=== PATIENT | female | born 1965 | race Caucasian/White ===

== ENCOUNTER 2017-04-18 17:40 | Inpatient (IN) | payer BC ==
--- NOTE | 2017-04-18 19:49 | ED ---
Psych HPI - General Chief Complaint: Psychiatric Symptoms Stated Complaint: mental health Time Seen by Provider: 04/18/17 17:58 Source: patient, police Mode of arrival: ambulatory - History of Present Illness Initial Comments: This 51-year-old white female presents for psychiatric evaluation. She apparently made some threats on Facebook regarding going to the top of the [facility] with an AK-47 with other details that are not definitively deciphered. She states that she wanted to have sex with bulldog, apparently some Paz on the top of the [facility]. She denies any suicidal or homicidal ideations. Per records, she does have a history of some schizoaffective disorder and bipolar disorder. She previously was on 5 different psychiatric medications. She states that these medications almost killed her so she stopped these medications. She states that she has no current medical or psychiatric complaints. She denies any hallucinations or delusions. No other complaints or modifying factors. - Related Data Previous Rx's Medication Instructions Recorded Divalproex ER [Depakote ER] 1,250 mg PO HS #7 dose 09/27/15 Escitalopram [Lexapro] 10 mg PO DAILY #7 tab 09/27/15 HYDROcodone/APAP 5-325MG [[place] 1 each PO DAILY PRN #7 tab 09/27/15 5-325] Coffeen Carbonate 600 mg PO BID #14 dose 09/27/15 Prazosin [Minipress] 1 mg PO BID #14 cap 09/27/15 cloZAPine [Clozaril] 37.5 mg PO HS #7 dose 09/27/15 Allergies Allergy/AdvReac Type Severity Reaction Status Date / Time ibuprofen [From Motrin] Allergy Hallucinati Verified 04/18/17 17:49 ons Review of Systems ROS Statement: Those systems with pertinent positive or pertinent negative responses have been documented in the HPI. ROS Other: All systems not noted in ROS Statement are negative. Past Medical History Past Medical History: No Reported History History of Any Multi-Drug Resistant Organisms: None Reported Past Surgical History: Section, Orthopedic Surgery Past Psychological History: Bipolar Smoking Status: Current every day smoker Past Alcohol Use History: Occasional Past Drug Use History: None Reported - Past Family History Father Family Medical History: Cancer Additional Family Medical History / Comment(s): Father in his 70s from colon cancer. Mother Family Medical History: Coronary Artery Disease (CAD) Additional Family Medical History / Comment(s): Mother in her 70s from heart disease. Brother(s) Additional Family Medical History / Comment(s): Patient states that she has 11 siblings was does not know any medical history. She has 3 children that are healthy although one has Miri syndrome. General Exam - General Exam Comments Initial Comments: GENERAL: The patient is well nourished and well hydrated. VITAL SIGNS: Heart rate, blood pressure, respiratory rate reviewed as recorded in nurse's notes. EYES: Pupils are round and reactive. Extraocular movements are intact. No conjunctival / lid redness or swelling. ENT: No external evidence of injury, swelling, or ecchymosis. Airway is patent. Throat is clear. NECK: Nontender. No swelling or evidence of injury. No subcutaneous emphysema. Trachea is midline. No thyroid mass. HEART: Regular rate and rhythm. Good peripheral pulses. LUNGS/CHEST: Breath sounds clear and equal bilaterally. No rales, rhonchi, or wheezes. No ecchymosis, subcutaneous emphysema, or tenderness. ABDOMEN: Abdomen soft without tenderness. No palpable masses or organomegaly. No peritoneal signs. No abdominal wall swelling or ecchymosis. EXTREMITIES: No extremity tenderness. Normal muscle tone and function. No thoracolumbar tenderness. NEUROLOGIC: Sensation is grossly intact. Cranial nerve exam reveals face is symmetrical, tongue is midline, speech is clear. SKIN: No abrasions or ecchymosis is noted. No induration or masses noted. PSYCHIATRIC: Alert and oriented. She appears somewhat manic currently. Limitations: no limitations Course Vital Signs 04/18/17 04/18/17 17:43 19:55 Temperature 99.2 F Pulse Rate 135 H 100 Respiratory 20 20 Rate Blood Pressure 140/79 134/84 O2 Sat by Pulse 97 97 Oximetry Medical Decision Making - Medical Decision Making The patient is seen and examined. All diagnostics are reviewed. She is cleared for further psychiatric evaluation. The psychiatric team did eventually evaluate the patient and would like to admit her for further treatment. It is felt as those is certainly is reasonable. She does not seem to understand the need to take her medication. It is felt as though she is likely in a manic episode currently. She is medically cleared for further psychiatric treatment. - Lab Data Lab Results 04/18/17 Range/Units 18:26 Urine Opiates Screen Not Detected (NotDetected) Ur Oxycodone Screen Not Detected (NotDetected) Urine Methadone Screen Not Detected (NotDetected) Ur Propoxyphene Screen Not Detected (NotDetected) Ur Barbiturates Screen Not Detected (NotDetected) U Tricyclic Antidepress Not Detected (NotDetected) Ur Phencyclidine Scrn Not Detected (NotDetected) Ur Amphetamines Screen Not Detected (NotDetected) U Methamphetamines Scrn Not Detected (NotDetected) U Benzodiazepines Scrn Not Detected (NotDetected) Urine Cocaine Screen Not Detected (NotDetected) U Marijuana (THC) Screen Not Detected (NotDetected) Disposition Clinical Impression: Psychosis, Bipolar disorder, Manda Disposition: ADMITTED IP TO THIS [facility] Condition: Fair Referrals: Carlton Bain III, MD [Primary Care Provider] - 1-2 days Time of Disposition: 20:29 Decision Date: 04/18/17 Decision Time: 20:29
[2017-04-18] MEDS ORDERED: LORazepam 2 MG/ML SYRINGE IM STA (20:28)
[2017-04-18] MEDS ORDERED: LORazepam 1 MG TAB PO STA (20:38)
[2017-04-18] MEDS ORDERED: ZIPRASIDONE 20 MG VIAL IM PRN (22:09)
[2017-04-18] MEDS ORDERED: MAGNESIUM HYDROXIDE 2,400 MG/10 ML CUP PO PRN (22:09)
[2017-04-18] MEDS ORDERED: LORazepam 2 MG/ML SYRINGE IM PRN (22:14)
[2017-04-18] MEDS ORDERED: OLANZapine ODT 5 MG TAB PO PRN (22:16)
[2017-04-19] MEDS: ACETAMINOPHEN TAB 325 MG TAB PO PRN (06:13)
[2017-04-19] MEDS ORDERED: LEVOTHYROXINE 75 MCG TAB PO SCH (06:30)
[2017-04-19] MEDS: NICOTINE 14MG/24HR PATCH TRANSDERM SCH (09:14)
[2017-04-19 09:31] LABS: Basophils % (A) 0 %; CH 28.5; CHCM 34.2; Eosinophils # (A) 0.1 k/uL (0-0.7); Eosinophils % (A) 2 %; HCT 40.1 % (34.0-46.0); HDW 2.75; HGB 14.2 gm/dL (11.4-16.0); Luc # (Auto) 0.06; Luc % (Auto) 1; Lymphocytes # (A) 1.5 k/uL (1.0-4.8); Lymphocytes % (A) 21 %; MCH 29.8 pg (25.0-35.0); MCHC 35.6 g/dL (31.0-37.0); MCV 83.7 fL (80.0-100.0); Mean Platelet Volume 8.1; Monocytes # (A) 0.3 k/uL (0-1.0); Monocytes % (A) 4 %; Neutrophils # (A) 4.9 k/uL (1.3-7.7); Neutrophils % (A) 72 %; RBC 4.79 m/uL (3.80-5.40); RDW 12.8 % (11.5-15.5); WBC 6.8 k/uL (3.8-10.6); WBC (Perox) 6.23
[2017-04-19 09:50] LABS: Appearance,Urine Clear (Clear); Bilirubin,Urine Negative (Negative); Glucose,Urine (UA) Negative (Negative); Ketones,Urine Negative (Negative); Leukocyte Esterase,Urine Negative (Negative); Nitrite,Urine Negative (Negative); Protein,Urine Negative (Negative); UA Billing (MACRO vs. MICRO) CHEM; Urobilinogen,Urine <2.0 mg/dL (<2.0)
[2017-04-19 10:01] LABS: ALT 31 U/L (9-52); AST 22 U/L (14-36); Alkaline Phosphatase 62 U/L (38-126); Anion Gap 9 mmol/L; Blood Urea Nitrogen 12 mg/dL (7-17); Calcium 9.7 mg/dL (8.4-10.2); Carbon Dioxide 28 mmol/L (22-30); Chloride 107 mmol/L (98-107); Glucose 127 mg/dL (74-99); Non-African American GFR(MDRD) >60 (>60 ml/min/1.73 sqM); Potassium 4.7 mmol/L (3.5-5.1); Sodium 144 mmol/L (137-145); Total Bilirubin 0.5 mg/dL (0.2-1.3); Total Protein 6.7 g/dL (6.3-8.2)
[2017-04-19 10:10] LABS: Specific Gravity,Urine 1.001 (1.001-1.035)
[2017-04-19] MEDS ORDERED: ARIPiprazole 2 MG TAB PO SCH (11:00)
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
[2017-04-20] MEDS: LEVOTHYROXINE 125 MCG TAB PO SCH (06:08)
[2017-04-20] MEDS: NICOTINE 14MG/24HR PATCH TRANSDERM SCH (09:04)
[2017-04-20] MEDS: ARIPiprazole 10 MG TAB PO SCH (09:05)
[2017-04-20] MEDS: OXYBUTYNIN XL 5 MG TAB.ER.24 PO SCH (11:46)
--- NOTE | 2017-04-20 13:05 | P.PN ---
Progress Note - Text Interval History: Patient is a 51-year-old female who is admitted on a petition due to having been posted on Facebook that [facility]" as well as posting that she was going to take the "Folkers out". At home the police found the patient with an AK 47 rifle she stated that she was going to try to shoot warning shot. Patient was admitted on a petition was maintained on an involuntary status. Patient was seen this morning and she was initially pleasant however when questioned how she was doing patient became irritable and agitated and responded to most questions "I have a speed reading teacher they said to not take medication it is an invasion of my privacy" and continued to respond to most questions by stating she was not going to answer due to it being an invasion of her privacy. Patient was not able to be redirected to discuss how she was feeling stating that the "sheriff detective's department told me to take the fifth". Patient refused to answer any further questions. Mental Status: Appearance/Attitude: Patient was dressed in clothing from the unit, she had on jeans that are too large for her a T-shirt and stated she was wearing a bow tie. Patient initially when I approached her was pleasant, smiling however during the interview she became increasingly irritable and for the last 10 minutes of the interview refused to sit and stood in the interview room. Behavior: Patient is easily irritated and became increasingly agitated. Speech/Language: Patient's speech was slightly pressured, with increasing volume , she was coherent. Thought Process: Patient continued to respond to most questions stating that they were an invasion of her privacy, she gave further samples of this "genome testing" and stated that any "medications, prescriptions and doctors were all invasions of her privacy". Patient was not redirectable. Thought Content: Patient denied any auditory or visual hallucinations and when questioned about the reasons for her admission stated that she was not trying to hurt anyone and when questioned about the decker, Jong Bull, stated "I'm allowed to have sex with anyone I want". She again refuses to elaborate further stating that it was an invasion of her privacy. Suicidal/Homicidal Ideation: Patient states she is not suicidal or homicidal. Sensorium/Cognition: Patient is alert and oriented to person, place, and time and her memory is grossly intact. Mood/Affect: Patient's mood was irritable and easily agitated during the interview with evidence of lability based on her being quite pleasant and talkative when I initially approach her and upon further questioning becoming more irritable and refusing to respond to questions. Insight/Judgement: Patient's insight and judgment are poor. Assessment: Patient remains irritable, refusing to respond to questions stating that it is all an invasion of her privacy. She continues to have delusions regarding the decker, Pit Bull and refuses to discuss the postings that she made on Facebook. Patient is refusing to attend groups stating that "I've done all these groups before", she did however state that she was sleeping and eating well. She continues to not understand the need for medication and denies all symptomatology and continues to feel that during her last admission here the medications almost killed her. Patient did however take her Abilify yesterday and did not require any when necessary medication. She did not report any side effects from the medication. Plan: Patient continues to require hospitalization, due to her postings on facebook, continued delusions regarding Pit Bull, I discussed with the patient increasing her Abilify to 10 mg daily to target her mood and psychotic symptoms. Patient was also restarted on Ditropan XL, patient had currently been taking Detrol LA 4mg a day this was confirmed at her pharmacy and so was started on the equivalent, Ditropan XL 5 mg every morning for urinary incontinence. Her Synthroid dose was decreased yesterday due to her low TSH. She was encouraged to attend groups and activities, and she continues to refuse to sign a release to speak with her family.
[2017-04-21] MEDS: LEVOTHYROXINE 125 MCG TAB PO SCH (05:30)
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
[2017-04-21] MEDS: NICOTINE 14MG/24HR PATCH TRANSDERM SCH (09:05)
[2017-04-21] MEDS: ARIPiprazole 10 MG TAB PO SCH (09:05)
[2017-04-21] MEDS: OXYBUTYNIN XL 5 MG TAB.ER.24 PO SCH (09:05)
[2017-04-22] MEDS: LEVOTHYROXINE 125 MCG TAB PO SCH (06:24)
[2017-04-22] MEDS: ARIPiprazole 10 MG TAB PO SCH (08:51)
[2017-04-22] MEDS: NICOTINE 14MG/24HR PATCH TRANSDERM SCH (08:51)
[2017-04-22] MEDS: OXYBUTYNIN XL 5 MG TAB.ER.24 PO SCH (08:51)
--- NOTE | 2017-04-22 13:18 | P.PN ---
Progress Note - Text Interval history: Patient is seen in cross coverage today for Dr. Whitfield. She reports that she is eating well. She states that it's hard to sleep and people come to check on every 15 minutes but she did seem to sleep some last night. She does seem to be taking the Abilify. She makes reference to being here under false port. Mental status exam: She is alert and cooperative with the interview, she stands during the interview. She is seen with female nursing staff present. Her mood she describes is good. She denies any thoughts of harm to self or others. She relays thoughts that she is here under false report. She does not show any significant agitation. At the end of the session she takes a off the window a sign that says physician use only. Plan: We'll maintain current psychotropic medication. We will monitor for medication side effects. Dr. Whitfield to resume care this patient starting tomorrow.
[2017-04-23] MEDS: LEVOTHYROXINE 125 MCG TAB PO SCH (05:47)
[2017-04-23] MEDS: NICOTINE 14MG/24HR PATCH TRANSDERM SCH (09:05)
[2017-04-23] MEDS: OXYBUTYNIN XL 5 MG TAB.ER.24 PO SCH (09:06)
[2017-04-23] MEDS: ARIPiprazole 15 MG TAB PO SCH (09:31)
[2017-04-23] MEDS: ARIPiprazole 10 MG TAB PO SCH (09:34)
--- NOTE | 2017-04-23 13:08 | P.PN ---
Progress Note - Text Interval History: Patient is a 51-year-old female who was admitted on a petition due to making threats on Facebook and being found with an AK-47 at her home. Recent seen today and she continues to deny that she was making any threats on Facebook and states that the AK-47 was unloaded and in her bedroom and that she was not outside. Patient has been taking her medication and she reports no side effects from the medication and did state that she thinks her thoughts are clear. She was less irritable today and her speech was less pressured and she was not responding to most questions with "dad's privacy invasion". She reports that she did not sleep well last night but otherwise has been sleeping well and her appetite has been good. She reports that she has no current suicidal ideation and no homicidal ideation currently and states she was not making threats to hurt anyone prior to her admission. She reports that she wants to go home to take care of her son who is disabled with Miri's syndrome and states that her visited her on Sunday. She continues to refuse to sign a release of information to speak with him however. She states that she is attending groups. Mental Status: Appearance/Attitude: Patient is dressed neatly in her attitude was more cooperative today, she did not respond to every question with the statement that it an invasion of her privacy. Behavior: Patient exhibited no psychomotor agitation or retardation. Speech/Language: Patient's speech was less pressured, at times it became more pressured when discussing the reasons for her admission, and she was coherent Thought Process: Patient was goal-directed and was not tangential or circumstantial and was responding to questions. Thought Content: Patient denies any auditory or visual hallucinations and states that she continues to have feelings for Pit Bull but would not elaborate. Patient denies that she was trying to hurt people or make threats prior to her admission and states that she only wanted to "have sex on the top of the [facility]". Suicidal/Homicidal Ideation: She denies any current suicidal ideation or homicidal ideation, stating that she was not making threats prior to her admission. Sensorium/Cognition: It is alert and oriented to person, place, and time. Her memory is grossly intact. Mood/Affect: Patient's mood is less labile and she denies feeling depressed and she is less irritable today, her affect is more appropriate. Insight/Judgement: Patient's insight and judgment remain fair, patient is taking her medicine but then verbalizes that she does not need it. Assessment: Patient has been taking her medication and has been attending groups per patient, she is less irritable and responding to questions at times at other times continues to report that it's an invasion of her privacy. Patient does state that her thoughts are clear but she continues to have delusions regarding her relationship with the deckerJong Bull. Patient reports she is not having any urinary incontinence, denies any side effects from any of the medications and continues to request discharge to take care of her handicapped son. In treatment meeting it was reported that she had yelled at another peer, no other problems and no prn medication. Plan: Will increase patient's Abilify to 15 mg every morning to continue to target her mood, psychotic symptoms. Continue to encourage the patient to attend groups and activities and participate in them. She continues to require hospitalization to stabilize her mood decrease her psychotic symptomatology and evaluate her risk for threatening behavior. Patient will continue to be encouraged to sign a release of information to speak with her and to have a family meeting.
[2017-04-24] MEDS: LEVOTHYROXINE 125 MCG TAB PO SCH (06:28)
[2017-04-24] MEDS: NICOTINE 14MG/24HR PATCH TRANSDERM SCH (08:36)
[2017-04-24] MEDS: ARIPiprazole 15 MG TAB PO SCH (08:36)
[2017-04-24] MEDS: OXYBUTYNIN XL 5 MG TAB.ER.24 PO SCH (08:36)
[2017-04-24] MEDS: MAG HYDROX/AL HYDROX/SIMETH 30 ML CUP PO PRN (09:17)
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
[2017-04-25] MEDS: LEVOTHYROXINE 125 MCG TAB PO SCH (06:05)
[2017-04-25] MEDS: NICOTINE 14MG/24HR PATCH TRANSDERM SCH (08:35)
[2017-04-25] MEDS: OXYBUTYNIN XL 5 MG TAB.ER.24 PO SCH (08:35)
[2017-04-25] MEDS: ARIPiprazole 15 MG TAB PO SCH (08:35)
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
[2017-04-26] MEDS: LEVOTHYROXINE 125 MCG TAB PO SCH (03:56)
[2017-04-26] MEDS: NICOTINE 14MG/24HR PATCH TRANSDERM SCH (09:26)
[2017-04-26] MEDS: OXYBUTYNIN XL 5 MG TAB.ER.24 PO SCH (09:26)
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
[2017-04-26] MEDS: LORazepam 1 MG TAB PO PRN (20:34)
[2017-04-27] MEDS: LEVOTHYROXINE 125 MCG TAB PO SCH (05:50)
[2017-04-27] MEDS: NICOTINE 14MG/24HR PATCH TRANSDERM SCH (08:30)
[2017-04-27] MEDS: OXYBUTYNIN XL 5 MG TAB.ER.24 PO SCH (08:30)
--- NOTE | 2017-04-27 12:32 | P.PN ---
Progress Note - Text Interval History: She is a 51-year-old female who is admitted due to posting threats on Facebook as well as being found at home by police with an AK-47. I spoke with patient this morning and she reported that she now has a guardian and is aware that her requested this as he is going to seek a divorce area she stated that he did this so that she would continue to receive medical care. Patient stated that she took Ativan last evening because she wanted to rest and reports that she continues to feel groggy this morning and more irritable from it. When I discussed with the patient her thoughts about the divorce she stated that her wants a divorce because on the guardianship papers it said that she was going to "lay him out". She reported saying this and states she told him this so that she could return him to his rightful place [facility]. Patient states that she has private mormonism books that were given to her by her father and she will not discuss this with me. 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 She again reported to me that she has signed a contracts with the [place] [employer] and [facility] to work with them, she states they have taken $50,000 of her money. She states that she has been attending groups but not this morning due to feeling sleepy, she refuses to sign a release for us to speak with her , stating "he does not want to speak to us". Patient continues to deny that she has ever engaged in threatening behavior, stating the PPO order can be obtained by anyone as " judges will sign anything their clerks give them". She did repeat that she was "taking the fifth" when we were discussing her and her statement about "laying him out". Patient states that she is ready to return home, that her said she is welcomed there. She stated that maybe the Abilify was helping her. Mental Status: [Appearance/Attitude: [Patient was in her bed when approached it was easily awakened, she was neatly and appropriately dressed and her attitude was initially pleasant with some increased irritability at the end of the interview.] Behavior: Patient had no evidence of any psychomotor agitation or retardation. Speech/Language: Speech is spontaneous in her and of normal volume and rhythm. Thought Process: Patient is goal-directed and at times tangential. Thought Content: Patient denies any auditory or visual hallucinations, patient continues to discuss her relationship with a decker, Pit Bull and continues to have mormonism preoccupation discussing "privacy mormonism books" that were given to her by her father. 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 Patient continues to verbalize that she has contracts with Police Department's to assist with their drug traffic programs. She continues to deny that she has ever made any threats to someone but did verbalize that her had stated on the guardianship papers that she had told him she was going to "lay him out" . She states this meant that she was going to return him to his rightful place , [facility]. Suicidal/Homicidal Ideation: Patient denies any current suicidal ideation or homicidal ideation, continuing to deny that she is ever threatened anyone even when discussing the PPO that was obtained by her 's employer on the patient. Sensorium/Cognition: He is alert, oriented to person, place, and time and her memory is grossly intact. Mood/Affect: Patient's mood is slightly more irritable today, affect was appropriate. Insight/Judgement: Patient's judgment and insight are impaired. Assessment: Patient continues to deny that she has ever threatened anyone, remains preoccupied with her relationship with the decker, Pit Bull, and remains religiously preoccupied. She has been taking her Abilify and reports that maybe it has been of some benefit but states that she does not need medication. She has been attending groups. Patient is aware that her requested guardianship, as well she is aware that he is seeking a divorce and her response was that he was trying to make sure she had care after they were . Plan: Patient is currently on Abilify 20 mg every morning which was increased on April 26, she remains delusional and guarded and continues to deny ever making any threats to anyone or engaging in threatening behavior. She has been compliant with the medication but continues to state she does not need it. Patient continues to require hospitalization due to her delusional ideation, prior threatening behavior and lack of insight into this as well as a lack of insight into the need for medication. Will continue to observe patient on current dose of Abilify and continue to adjust as required.
[2017-04-28] MEDS: LEVOTHYROXINE 125 MCG TAB PO SCH (06:10)
[2017-04-28] MEDS: NICOTINE 14MG/24HR PATCH TRANSDERM SCH (08:23)
[2017-04-28] MEDS: OXYBUTYNIN XL 5 MG TAB.ER.24 PO SCH (08:23)
--- NOTE | 2017-04-28 09:14 | P.PN ---
Progress Note - Text Interval history: The patient is found in the hallway she follows me to an interview room. The patient has been seen in coverage today. The patient was admitted with symptoms of fortunato with psychosis. The patient spontaneously reports several types of delusions during our brief session. She is currently prescribed Abilify 20 mg daily which has been titrated during the course of this stay. She states that she has previously been on lithium which she will never take again. It's documented that she slept 6 hours she reports she slept all night she endorses an intact appetite. Previous notes are reviewed. Mental status exam: The patient is alert for the first half of our session she stands at the side of the table. Later she eventually sits down. She does have spontaneous pressured speech. I do need to interrupt her to guide the course of the interview. She spontaneously expresses grandiose delusions, paranoid and persecutory thoughts. In terms of thought process she demonstrated circumstantial thinking tangential thinking and loose associations. Her insight and judgment are poor. She lacks insight into the reasons for the admission and the necessity of ongoing hospitalization. She demonstrates no verbal or physical aggressiveness. Plan: The patient will continue on her current medications the Abilify appears to have been titrated on the . We will consider titrating this medication further. I would consider adding a conventional mood stabilizer to the Abilify if possible. We will continue to monitor the patient for safety and encourage her appropriate participation in the milieu. Vital signs reviewed.
[2017-04-29] MEDS: LEVOTHYROXINE 125 MCG TAB PO SCH (05:30)
[2017-04-29] MEDS: OXYBUTYNIN XL 5 MG TAB.ER.24 PO SCH (08:12)
[2017-04-29] MEDS: NICOTINE 14MG/24HR PATCH TRANSDERM SCH (08:12)
--- NOTE | 2017-04-29 09:19 | P.PN ---
Progress Note - Text Interval history: The patient is found in the hallway she follows me to an interview room. She starts off by asking about lab results pertaining to her thyroid. Those were reviewed. We reviewed that the internal medicine physician decreased the Synthroid as the result of the low TSH and elevated T4. She then began spontaneously speaking of several delusional themes. Most notably she is focused on her and starting a string of activities subsequent to the divorce. We reviewed several options in terms of mood stabilizers that may be added to the Abilify but she is not open to any of those suggestions. It appears she slept approximate 4 hours last night. Mental status exam: The patient is alert she is verbose hyperverbal. She has spontaneous speech. Thought process is tangential and sometimes will demonstrate loose associations. Her thought process consistently is not well organized. She seems to demonstrate grandiose and persecutory type delusions. Insight and judgment are poor. She demonstrates no verbal or physical aggressiveness. She calmly terminates the session as she gets out of her chair and walk sell her room while still talking. No observed evidence of been involuntary movements. Plan: The patient will continue on the Abilify 20 mg daily. This will likely require further titration. If she is amenable consider adding another mood stabilizer to the Abilify. We will continue monitoring the patient for safety she is encouraged to appropriately participate in the milieu. Vital signs reviewed.
[2017-04-30] MEDS: ACETAMINOPHEN TAB 325 MG TAB PO PRN (06:03)
[2017-04-30] MEDS: LEVOTHYROXINE 125 MCG TAB PO SCH (06:03)
[2017-04-30] MEDS: OXYBUTYNIN XL 5 MG TAB.ER.24 PO SCH (08:28)
[2017-04-30] MEDS: NICOTINE 14MG/24HR PATCH TRANSDERM SCH (08:30)
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
[2017-04-30] MEDS: MAG HYDROX/AL HYDROX/SIMETH 30 ML CUP PO PRN (19:20)
[2017-05-01] MEDS: MAG HYDROX/AL HYDROX/SIMETH 30 ML CUP PO PRN (01:42)
[2017-05-01] MEDS: LEVOTHYROXINE 125 MCG TAB PO SCH (06:50)
[2017-05-01] MEDS ORDERED: LOPERAMIDE 2 MG CAP PO ONE (06:57)
[2017-05-01] MEDS: ARIPiprazole 15 MG TAB PO SCH (08:26)
[2017-05-01] MEDS: NICOTINE 14MG/24HR PATCH TRANSDERM SCH (08:26)
[2017-05-01] MEDS: OXYBUTYNIN XL 5 MG TAB.ER.24 PO SCH (08:26)
[2017-05-01] MEDS: LORazepam 1 MG TAB PO PRN (10:36)
[2017-05-01] MEDS: OXcarbazepine 150 MG TAB PO SCH ×2 (11:11→22:01)
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
[2017-05-02] MEDS: ACETAMINOPHEN TAB 325 MG TAB PO PRN (03:11)
[2017-05-02] MEDS: LEVOTHYROXINE 125 MCG TAB PO SCH (05:59)
[2017-05-02] MEDS: OXcarbazepine 150 MG TAB PO SCH (08:25)
[2017-05-02] MEDS: OXYBUTYNIN XL 5 MG TAB.ER.24 PO SCH (08:25)
[2017-05-02] MEDS: NICOTINE 14MG/24HR PATCH TRANSDERM SCH (08:25)
[2017-05-02] MEDS: ARIPiprazole 15 MG TAB PO SCH (08:25)
[2017-05-02 10:00] VITALS: BMI 25.8
[2017-05-02] MEDS: MAG HYDROX/AL HYDROX/SIMETH 30 ML CUP PO PRN (10:39)
[2017-05-02] MEDS ORDERED: ARIPiprazole 400 MG VIAL IM ONE (13:15)
--- NOTE | 2017-05-02 13:37 | P.PN ---
Progress Note - Text Interval History: Patient is a 51y/o female who was admitted due to posting threats on Facebook and being found at home with an AK 47, patient was seen today and she states she now trusts me, she had spoken with me yesterday to say that some of her ideas do not seem correct, referring to her ideas about the decker, Jong Stephens. Today she states that the idea that she was spiritually to him is not realistic and does not make sense. She stated that the medication has been helpful and she has no complaints of side effects. She stated she was sad about her divorce, will hire an patent attorney and questioned why she required a guardian. She appropriately discussed her concerns about this and made no threatening or derogatory statements about her . She slept during the day yesterday due to taking ativan but has been sleeping well. She finds the groups helpful and has been participating. She reports her mood is upbeat, not feeling depressed or angry. Mental Status: Appearance/Attitude: Patient was neatly dressed and groomed, she made good eye contact and was cooperative. Behavior: Patient did not exhibit any psychomotor retardation or agitation. Speech/Language: Her speech was spontaneous, normal volume and rhythm. Thought Process: Patient was goal directed, no loose associations, no tangential or circumstantial thought. Thought Content: Patient denied any auditory or visual hallucinations, no delusions were elicited or voiced by the patient, she discussed her divorce appropriately without derogatory or threatening statements about her . She questioned the reality of her "spiritual marriage" to Jong Stephens. She discussed her angry behavior in the past and stated she has learned new coping skills. Suicidal/Homicidal Ideation: She denied any suicidal or homicidal ideation currently and no threatening statements were made. Sensorium/Cognition: Patient is alert, oriented to person, place, and time and her memory was grossly intact. Intellectual Functioning: Intellectual functioning appears normal Mood/Affect: Patient stated she was feeling good, her mood was stable and her affect was appropriate Insight/Judgement: Patient's insight and judgement are fair, she is agreeable to taking medication and feels it has been beneficial. Assessment: Patient has shown improvement by questioning some of her prior delusional ideation as not making sense. She reports that she is seeing the benefits of the medication and agrees that it has been helpful to her. She is not been verbalizing any threatening or derogatory statements regarding her and has been discussing her divorce in an appropriate fashion. Patient questioned her need for a guardian and will follow-up with this as an outpatient. Patient has been attending groups and participating and reports that they've been helpful. Plan: Patient and I discussed her medications and I suggested that she consider Abilify Maintena so that she would only have to get an injection once a month and not take Abilify daily and she was agreeable with this plan and so will begin Abilify maintena 400 mg IM today and will continue oral Abilify 30mg for 14 days following her injection. Patient has tolerated the Trileptal and her dose will be increased to 300 mg twice a day and she was agreeable with this as well. Patient and I discussed discharge this Sunday she was agreeable to this as well as agreeable to follow-up in an outpatient clinic after discharge. Patient stated that she will hire an patent attorney to deal with her divorce as well as her concerns regarding guardianship.
[2017-05-02] MEDS: OXcarbazepine 300 MG TAB PO SCH (20:39)
[2017-05-02] MEDS: LORazepam 1 MG TAB PO PRN (21:53)
[2017-05-03] MEDS: LEVOTHYROXINE 125 MCG TAB PO SCH (05:34)
[2017-05-03] MEDS: OXYBUTYNIN XL 5 MG TAB.ER.24 PO SCH (09:11)
[2017-05-03] MEDS: ARIPiprazole 15 MG TAB PO SCH (09:11)
[2017-05-03] MEDS: OXcarbazepine 300 MG TAB PO SCH ×2 (09:11→20:56)
[2017-05-03] MEDS: NICOTINE 14MG/24HR PATCH TRANSDERM SCH (09:11)
[2017-05-03] MEDS: LORazepam 1 MG TAB PO PRN ×2 (10:42→20:57)
--- NOTE | 2017-05-03 14:56 | P.PN ---
Progress Note - Text Interval History: Patient is a 51-year-old female who was admitted after posting threats on Facebook and being found by the police at home with an AK- 47. Patient was seen today and reported that her had left off a letter for me and I discussed this with the patient. I discussed with the patient the fact that she been calling her on multiple occasions, and told him that he told her [employer] would be her guardian. We also discussed that she was on at PPO order requiring her to not use social media and this was made by an employee at her 's company. Patient stated that she had been calling her repeatedly, is upset about having a guardian becomes very tearful when discussing her divorce. She was able to report that her thoughts about [employer] were due to hearts and clasped hands appearing on her Facebook posts to him, she took these to mean that he wanted to have a relationship with her. She was able to verbalize to me today that this was not realistic she no longer feels that she is spiritually to him. Patient states that she is feeling much better on the medication and is aware that some of her statements were not based on reality, patient has been taking the medication and reports no side effects from it. She does feel that her mood is more stable and that her thinking is clear. Patient did not verbalize any threatening statements nor make any homicidal threats. Mental Status: Appearance/Attitude: Patient was neatly dressed and groomed and was cooperative during the interview. Behavior: Patient displayed no psychomotor agitation or retardation. Speech/Language: Speech was spontaneous and of normal volume and rhythm and she was coherent. Thought Process: She was goal-directed and there was no evidence of any circumstantial or tangential thought, no loose associations or flight of ideas. Thought Content: Patient denied any auditory or visual hallucinations and was able to verbalize that her prior thoughts regarding Pit Bull were not realistic. She stated that she is sad about the divorce and verbalized that she has no friends and was quite tearful when discussing this. Patient was receptive when discussing her prior threatening behavior and the reason for the PPO. She reported that she is sleeping well and her appetite is good. Suicidal/Homicidal Ideation: Patient denied any current suicidal or homicidal behavior and did not make any threatening statements. Sensorium/Cognition: [Patient was alert and oriented to person, place, and time and her memory is grossly intact.] Mood/Affect: Patient's mood was pleasant and her affect was appropriate Insight/Judgement: Insight and judgment are fair. Assessment: Patient has been compliant with the medication and is also able to discuss her current medication regimen with me and states that she is feeling better on it. Patient is now able to question some of her prior thoughts about the decker, Pit Bull and see that those were not realistic. She expresses her sadness about the divorce and her frustration about having a guardian. She was able to have a discussion with me regarding her PPO from her 's employer as well as the need for her to not use any social media as per the PPO. I confronted the patient with her numerous calls to her and other concerns that he had sent in a letter and she was aware that he had done so, she admitted that she had been calling him frequently. Plan: Patient received Abilify maintena 400 mg IM on May 02 her next dose will be due in 4 weeks, May 30. Patient is aware that she will continue on Abilify 30 mg daily for a total of 14 days following her injection and this would be May 16. Patient will also continue on Trileptal 300 mg twice a day to stabilize her mood. Patient feels that the medication has been helpful, she reports no side effects from the medication and states that she is willing to follow-up at [facility]. We discussed that if the clinic is not able to give her her monthly Abilify injection that she should obtain the prescription from the psychiatrist there take it to a pharmacy have the medication filled and have her primary care doctor's office over the injection. Patient and I discussed discharge tomorrow as she has tolerated the injection given yesterday and is not reporting any side effects from medication and continues to show improvement.
[2017-05-04 05:04] VITALS: BP 136/72; PULSE 102; RESP 16; TEMP 97.9
[2017-05-04] MEDS: LEVOTHYROXINE 125 MCG TAB PO SCH (05:27)
[2017-05-04] MEDS: NICOTINE 14MG/24HR PATCH TRANSDERM SCH (08:48)
[2017-05-04] MEDS: OXYBUTYNIN XL 5 MG TAB.ER.24 PO SCH (08:49)
[2017-05-04] MEDS: OXcarbazepine 300 MG TAB PO SCH (08:49)
[2017-05-04] MEDS: ARIPiprazole 15 MG TAB PO SCH (08:49)
--- NOTE | 2017-05-04 11:01 | P.DS ---
Providers Date of admission: 04/18/17 21:31 Expected date of discharge: 05/04/17 Attending physician: Katia Whitfield MD Consults: 04/18/17 22:09 Consult Physician Routine Consulting Provider: Antonio Jaime Consult Reason/Comments: h and p, eval and tx, r/o metabolic disorder Do you want consulting provider notified?: Yes, Notify in am Primary care physician: Carlton Meza [facility] Course: Discharge Diagnoses: Bipolar disorder, current episode manic with psychotic features, hypothyroidism by history, urinary incontinence by history Reason for Admission: Patient is a 51-year-old female who was brought to the emergency room by the police due to posting threats on Facebook that she was going to get on the top of the [email or web address] and "fuck people up" as well as posting that she was going to take the "fuckers out". When police went to her home patient had an AK-47 rifle stating she was going to shoot a warning shot. Patient was brought to the emergency room on a petition. Patient when initially seen was very guarded stating that she did not want to tell me any information as it was private. Patient denied that she was threatening anyone stating that in fact she wanted to have sex on top of the [email or web address]. She stated GM had stolen her identity and due to this she was going to "fuck everyone". Patient also reported that she did not have bullets in the AK-47 and that she was going to fire a warning shot for target practice. She reported that she had "degrees" and was "trained" and had a [employer] license. Patient refused to elaborate on any of the statements stating that she was going to take a fifth and that it is private property. Patient also reported that she was spiritually to Jong Stephens and wanted to have sex with him. She states that she has been writing to him and knew that he loved her but would not give further details. Patient had been discharged from the psychiatric unit in September 2015 and was to review follow-up at professional counseling. Patient states that she stopped going there because she was being controlled by medication and people and reported numerous side effects from her medication. She states that she stopped taking her medications 9 months after her discharge. Hospital Course: Patient was admitted on an involuntary basis and deferred her hearing. Patient was placed on routine observation, groups and activity therapy were ordered, and she remained guarded and refusing to give details or elaborate when questioned and also refused to sign a release of information to speak with her family. Patient was agreeable to beginning Abilify and she was slowly titrated to a maximum dose of 30 mg. Patient was also continued on her Synthroid and a trip and was used to treat her at complaints of urinary incontinence. Patient remained guarded, delusional regarding her relationship with the decker, she she also expressed advent delusions and denying that she had ever made any threats to anyone. As the patient's Abilify was increased she became less guarded but persisted with her delusions. Patient however was attending groups and participating in them. Patient became more cooperative, eventually signed a release of information for her and was agreeable to the addition of Trileptal as a mood stabilizer. Patient also tolerated the Abilify and was agreeable to begin Abilifi Maintena. Patient and I discussed her PPO order from her 's employer due to her threatening behavior, as well as her multiple calls to her and she was able to discuss these issues without becoming agitated or guarded. Patient was also informed by her that he was filing for divorce and the patient also had a public guardian assigned to her at her 's request. Patient expressed sadness over her divorce in an appropriate fashion and never exhibited any threatening behavior on the unit. Patient was accepting of the medication and felt that it had been beneficial to her as well as agreeing to follow-up in outpatient therapy. Patient was given Abilify Maintena 400 mg IM on May 02 and it was titrated to Trileptal 300 mg twice a day. She continues on Abilify 30 mg every morning. Discharge Mental Status:Appearance/Attitude: Patient was neatly and appropriately dressed, she was cooperative during the interview and was not guarded nor did she refused to respond to questions. Behavior: Patient did not display any psychomotor agitation or retardation. Speech/Language: Patient's speech was spontaneous, of normal volume and rhythm and she was coherent. Thought Process: Patient was goal-directed and did not display any circumstantial or tangential thought and no flight of ideas or loose associations. Thought Content: Patient denied any auditory or visual hallucinations, and she did not verbalize any paranoid ideation and no delusions were elicited. When I questioned the patient regarding her relationship with Pit Bull she stated that it was not realistic. She did not verbalize any advent delusions, she was open and did not state that she was going to take the fifth or refused to respond to questions. Patient discussed her divorce and her sadness over it as well as concerns about having a guardian. Patient also reported that she had learned techniques to control her anger and we discussed her PPO and that she not use any social media or call or go to her 's employer and she understood and agreed that she would follow that. Suicidal/Homicidal Ideation: Patient denied any suicidal ideation and denied any current homicidal ideation and made no threats towards anyone. Sensorium/Cognition: Patient was alert, oriented to person, place, and time and her memory is grossly intact. Patient's intellectual functioning appears average. Mood/Affect: Patient's mood was stable and her affect was appropriate. Insight/Judgement: Patient's insight and judgment are fair. Risk Assessment: Patient's risk remains moderate due to history of noncompliance with medication and follow-up care, her prior history of threatening behavior, PPO order. Patient currently has a public guardian. Discharge Plan: Patient will be discharged to return home she states that she will live in a mobile home on her property while her and son live in the house. Patient states that she will occupy her time during the day organizing photographs. She will continue on Abilify 30 mg every morning until May 16 which will complete 14 days after having received Abilify Maintena 400 mg on May 02. Patient will also continue on Trileptal 300 mg twice a day. She will also continue on Synthroid, Ditropan XL and states that she would like to continue using nicotine patches to stop smoking. Patient will follow-up at [facility] and has her first appointment on May 07. Patient was given scripts for Abilify 30 mg every morning for 12 days, Trileptal 300 mg twice a day and her next Abilify Maintena injection is due on May 30. Patient was encouraged to be compliant with medication and appointments. She was encouraged to continue smoking cessation. Patient's guardian aware of her discharge. Patient Condition at Discharge: Stable Plan - Discharge Summary New Discharge Prescriptions: New ARIPiprazole [Abilify] 30 mg PO DAILY #24 tab Nicotine 14Mg/24Hr Patch [Habitrol] 1 patch TRANSDERM DAILY #14 patch OXcarbazepine [Trileptal] 300 mg PO BID #30 tab Oxybutynin Xl [Ditropan XL] 5 mg PO DAILY #14 tab Continue Levothyroxine Sodium [Synthroid] 150 mcg PO DAILY #14 Discontinued HYDROcodone/APAP 7.5-325MG [Lucien 7.5-325] 1 tab PO TID PRN PRN Reason: Pain Discharge Medication List ARIPiprazole [Abilify] 30 mg PO DAILY #24 tab 05/04/17 [Rx] Levothyroxine Sodium [Synthroid] 150 mcg PO DAILY #14 05/04/17 [Rx] Nicotine 14Mg/24Hr Patch [Habitrol] 1 patch TRANSDERM DAILY #14 patch 05/04/17 [ Rx] OXcarbazepine [Trileptal] 300 mg PO BID #30 tab 05/04/17 [Rx] Oxybutynin Xl [Ditropan XL] 5 mg PO DAILY #14 tab 05/04/17 [Rx] Follow up Appointment(s)/Referral(s): [facility] [Outside] - 05/07/17 9:30 am (05/07 @ 10:00 please arrive at 09:30 for paperwork please bring id and insurance card) Carlton Bain III, MD [Primary Care Provider] - 1-2 days Patient Instructions/Handouts: How to Stop Smoking (DC) Activity/Diet/Wound Care/Special Instructions: Abilify Maintena 400mg given on 05/02, next injection due on 05/30 Remove all weapons and firearms from the home; No street drugs or alcohol; Regular Diet; Activity as tolerated; Follow-up with your PCP in 1-2 days; Keep all scheduled follow-up appointments for continuity of care; Any problems call your PCP or the Crisis line at or [phone] in case of emergency. Discharge Disposition: HOME SELF-CARE
== END 2017-05-04 12:37 | disposition home or self-care (01) | DRG 885 ==
LOC: EC 17:40 → 3MHU 21:31
PROVIDERS: ADMIT Psychiatry & Neurology Psychiatry; ATTEND Psychiatry & Neurology Psychiatry
DX: F31.2 Bipolar disorder, current episode manic severe with psychotic features (principal); E03.9 Hypothyroidism, unspecified; F17.200 Nicotine dependence, unspecified, uncomplicated; F41.9 Anxiety disorder, unspecified; N39.498 Other specified urinary incontinence; R19.7 Diarrhea, unspecified; Z79.899 Other long term (current) drug therapy; Z91.19 Patient's noncompliance with other medical treatment and regimen; Z91.14 Patient's other noncompliance with medication regimen; Z88.6 Allergy status to analgesic agent; Z82.49 Family history of ischemic heart disease and other diseases of the circulatory system
CPT/HCPCS: 80053; 80306; 81003; 82075; 84439; 84443; 85025; 99285

== ENCOUNTER → 2020-02-06 | Outpatient (CLI) | payer BC, MEDICARE ==
--- NOTE | 2020-02-06 15:21 | CT ---
EXAMINATION TYPE: CT abdomen pelvis w con DATE OF EXAM: 02/06/2020 HISTORY: Incisional hernia CT DLP: 1086mGycm Automated Exposure Control for Dose Reduction was Utilized. CONTRAST: CT scan of the abdomen and pelvis is performed with IV Contrast, patient injected with 100 ml mL of I sovue 300. COMPARISON: 08/08/2016 CT FINDINGS: LUNG BASES: No significant abnormality is appreciated. LIVER/GB: Hepatic parenchyma is diffusely hypoattenuated in comparison to that of the spleen, most co mmonly seen in hepatic steatosis. This finding limits evaluation for hepatic masses. No gross evidenc e of hepatic mass is seen. There is no mild intrahepatic biliary ductal dilatation. Gallbladder is issa rgically absent. PANCREAS: No significant abnormality is seen. SPLEEN: No splenomegaly. ADRENALS: No nodularity or thickening. KIDNEYS: Kidneys enhance and excrete symmetrically without hydronephrosis. BOWEL: There is a moderate hiatal hernia seen containing contrast that may relate to reflux or delaye d propulsion. Sigmoid anastomotic site is seen with few colonic diverticula. No pericolonic fat stran ding seen. Mild degree colonic fecal stasis in the right hemicolon. Appendix is within normal limits of size. No dilated large or small bowel. UTERUS/ADNEXA: Follicular change of the left ovary measures 1.0 cm. LYMPH NODES: No greater than 1cm abdominal or pelvic lymph nodes are appreciated. OSSEOUS STRUCTURES: Mild multilevel degenerative change of the spine. OTHER: Fat filled ventral abdominal hernia begins 4.3 cm above the umbilicus and is wide neck measuri ng 2.6 cm. This measures 2.6 cm in craniocaudal dimension as well. Abutting loops of small bowel swift shy no small bowel enters the hernia defect at this time. Surgical clips are seen just posterior to t his hernia defect. IMPRESSION: 1. Ventral abdominal incisional hernia is fat-containing with a wide neck measuring 2.6 cm beginning 4.3 cm above the umbilicus. The hernia defect measures 2.6 cm in craniocaudal dimension. 2. New mild intrahepatic biliary ductal dilatation. Correlate with liver panel and alkaline phosphata se to determine the need for MRCP with contrast to evaluate for any distal stricture, obstructing sto ne or mass, or biliary tree pathology. 3. Moderate hiatal hernia.
== END | disposition home or self-care (01) ==
LOC: RADCTMAIN 07:29
PROVIDERS: ATTEND Surgery
DX: K43.2 Incisional hernia without obstruction or gangrene (principal); K83.8 Other specified diseases of biliary tract; K44.9 Diaphragmatic hernia without obstruction or gangrene
CPT/HCPCS: 74177; Q9967

== ENCOUNTER → 2020-03-05 | Outpatient (CLI) | payer BC, MEDICARE ==
[2020-03-05 10:31] LABS: Basophils % (A) 1 %; Eosinophils # (A) 0.1 k/uL (0-0.7); Eosinophils % (A) 3 %; HGB 13.8 gm/dL (11.4-16.0); Lymphocytes # (A) 1.1 k/uL (1.0-4.8); Lymphocytes % (A) 26 %; MCH 28.7 pg (25.0-35.0); MCHC 32.8 g/dL (31.0-37.0); MCV 87.5 fL (80.0-100.0); Mean Platelet Volume 7.6; Monocytes # (A) 0.2 k/uL (0-1.0); Monocytes % (A) 5 %; Neutrophils # (A) 2.6 k/uL (1.3-7.7); Neutrophils % (A) 63 %; Platelet Count 241 k/uL (150-450); RDW 12.3 % (11.5-15.5); WBC 4.1 k/uL (3.8-10.6)
== END | disposition home or self-care (01) ==
LOC: LABPAT 08:58
PROVIDERS: ATTEND Surgery
DX: Z01.818 Encounter for other preprocedural examination (principal); K43.2 Incisional hernia without obstruction or gangrene; D64.9 Anemia, unspecified; F17.200 Nicotine dependence, unspecified, uncomplicated
CPT/HCPCS: 86900; 86901; 80051; 85025; 86850; 93005; 36415; U0003

== ENCOUNTER 2020-03-08 08:12 | Day surgery (SDC) | payer BC, MEDICARE ==
[2020-03-04 16:30] VITALS: BMI 29.2
[~2020-03-08 08:12] MED LIST: ACETAMINOPHEN TAB 500 MG TAB PO ONE; HEPARIN SODIUM,PORCINE 5,000 UNIT/ML 1 ML VIAL SQ ONE
[2020-03-08] MEDS ORDERED: MIDAZOLAM 2 MG/2 ML VIAL IV PRN (08:18)
[2020-03-08] MEDS ORDERED: ONDANSETRON 4 MG/2 ML VIAL IVP ONE (08:18)
[2020-03-08] MEDS ORDERED: DEXAMETHASONE SOD PHOSPHATE 10 MG/ML 1 ML VIAL IV ONE (08:18)
[2020-03-08] MEDS ORDERED: LACTATED RINGERS 1,000 ML IV SCH (08:18)
--- NOTE | 2020-03-08 09:03 | P.GSHP ---
History of Present Illness H&P Date: 03/08/20 Chief Complaint: Incisional hernia 54-year-old female well known to our service. Has been having complaints of pain and bulging at the upper aspect of her recent sigmoid colectomy incision site. First noticed several months ago. Increasing in size. Had recent upper endoscopy showing small the moderate-sized hiatal hernia as well. No change in bowel habits. No fevers. Here today for elective repair of incisional hernia. Past Medical History Past Medical History: COPD, GERD/Reflux, Hypertension, Myocardial Infarction (AK), Thyroid Disorder Additional Past Medical History / Comment(s): diverticulitis, hx bowel resection, DDD with buldging disc & back pain., OAB, ?AK , Hiatal Hernia., incisional hernia Last Myocardial Infarction Date:: UNKNOWN History of Any Multi-Drug Resistant Organisms: None Reported Past Surgical History: Bowel Resection, Section, Cholecystectomy, Tonsillectomy Additional Past Surgical History / Comment(s): egd Past Anesthesia/Blood Transfusion Reactions: No Reported Reaction Past Psychological History: Bipolar, Depression, PTSD Smoking Status: Current every day smoker Past Alcohol Use History: Rare Additional Past Alcohol Use History / Comment(s): started smoking age 12, smokes 1ppd. Past Drug Use History: None Reported - Past Family History Father Family Medical History: Cancer Additional Family Medical History / Comment(s): Father in his 70s from colon cancer. Mother Family Medical History: Coronary Artery Disease (CAD) Additional Family Medical History / Comment(s): Mother in her 70s from heart disease. Brother(s) Additional Family Medical History / Comment(s): Patient states that she has 11 siblings was does not know any medical history. She has 3 children that are healthy although one has Miri syndrome. Medications and Allergies Home Medications Medication Instructions Recorded Confirmed Type Levothyroxine Sodium [Synthroid] 150 mcg PO DAILY #14 05/04/17 03/08/20 Rx ARIPiprazole [Abilify] 20 mg PO DAILY 03/04/20 03/08/20 History Albuterol Inhaler [Ventolin Hfa 1 puff INHALATION DIRECTED PRN 03/04/20 03/08/20 History Inhaler] Albuterol Nebulizer 1 dose INHALATION DIRECTED PRN 03/04/20 03/08/20 History Baclofen 1 - 2 tab PO BID PRN 03/04/20 03/08/20 History Fluconazole [Diflucan] 200 mg PO DAILY 03/04/20 03/08/20 History HYDROcodone/APAP 10-325MG [[place] 1 tab PO QID PRN 03/04/20 03/08/20 History 10-325] Lisinopril [Zestril] 10 mg PO HS 03/04/20 03/08/20 History Magnesium 500 mg PO DAILY 03/04/20 03/08/20 History OXcarbazepine [Trileptal] 300 mg PO TID 03/04/20 03/08/20 History Omeprazole [PriLOSEC] 20 mg PO DAILY 03/04/20 03/08/20 History Sertraline [Zoloft] 100 mg PO BID 03/04/20 03/08/20 History Sodium 1 tab PO TID 03/04/20 03/08/20 History Tolterodine ER [Detrol LA] 4 mg PO DAILY 03/04/20 03/08/20 History amLODIPine [Norvasc] 10 mg PO DAILY 03/04/20 03/08/20 History Allergies Allergy/AdvReac Type Severity Reaction Status Date / Time ibuprofen [From Motrin] Allergy Hallucinati Verified 03/08/20 08:34 ons Surgical - Exam Vital Signs Temp Pulse Resp BP Pulse Ox 98.9 F 79 16 135/95 97 03/08/20 08:36 03/08/20 08:36 03/08/20 08:36 03/08/20 08:36 03/08/20 08:36 Physical exam: General: Well-developed, well-nourished HEENT: Normocephalic, sclerae nonicteric Abdomen: Nontender, nondistended, reducible incisional hernia at superior aspect of recent scar above umbilicus Extremities: No edema Neuro: Alert and oriented Assessment and Plan (1) Incisional hernia Narrative/Plan: Will proceed with open repair reducible incisional hernia with mesh. Risks of bleeding, infection, recurrence, bladder and bowel injury, numbness, nerve injury, were discussed with the patient. The patient understands and wishes to proceed. Current Visit: Yes Status: Acute Code(s): K43.2 - INCISIONAL HERNIA WITHOUT OBSTRUCTION OR GANGRENE SNOMED Code(s): 162179218
[2020-03-08] MEDS ORDERED: fentaNYL (PF) 50 MCG/ML 2 ML AMP IV ONE (09:22)
--- NOTE | 2020-03-08 09:34 | P.ANPRN ---
Procedure Note - Anesthesia - Nerve Block Performed Bilateral Rectus Abdominis Single Time Out Performed: Yes Date of Procedure: 03/08/20 Procedure Start Time: : Procedure Stop Time: : Location of Patient: PreOp Indication: Acute Post-Operative Pain Sedation Type: Sedate with meaningful contact maintained Preparation: Sterile Prep Position: Supine Catheter: None Needle Types: Facet Needle Gauge: 21 Ultrasound used to visualize needle placement: Yes Ultrasound used to observe medication spread: Yes Injectate: 0.5% Ropivacaine (see comment for volume) (20 CC/SIDE ropivacaine 0.5% + decadron 4 mg per side) Blood Aspirated: No Pain Paresthesia on Injection Noted: No Resistance on Injection: Normal Image Stored and Saved: Yes Events: Uneventful and Well Tolerated
[2020-03-08] MEDS ORDERED: LIDOCAINE 1% INJ 10MG/ML (20 ML MDV) ONE (09:43)
[2020-03-08] MEDS ORDERED: ROPIVACAINE 5 MG/ML 30 ML VIAL ONE (09:43)
[2020-03-08] MEDS ORDERED: NEOSTIGMINE 1 MG/ML 10 ML VIAL ONE (09:43)
[2020-03-08] MEDS ORDERED: DEXAMETHASONE SOD PHOSPHATE 4 MG/ML 1 ML VIAL ONE (09:43)
[2020-03-08] MEDS ORDERED: SUCCINYLCHOLINE CHLORIDE 100 MG/5 ML SYR IV ONE (09:43)
[2020-03-08] MEDS ORDERED: fentaNYL (PF) 50 MCG/ML 2 ML AMP ONE (09:43)
[2020-03-08] MEDS ORDERED: ROCURONIUM BROMIDE 10 MG/ML 5 ML VIAL IV ONE (09:43)
[2020-03-08] MEDS ORDERED: ePHEDrine SULFATE/0.9% NACL/PF 50 MG/5 ML SYRINGE IV ONE (09:43)
[2020-03-08] MEDS ORDERED: GLYCOPYRROLATE 0.2 MG/ML 2 ML VIAL ONE (09:43)
[2020-03-08] MEDS ORDERED: PROPOFOL 10 MG/ML 20 ML VIAL IV ONE (09:43)
[2020-03-08] MEDS ORDERED: LACTATED RINGERS 1,000 ML IV ONE (11:26)
[2020-03-08] MEDS ORDERED: METOCLOPRAMIDE 5 MG/ML 2 ML VIAL IVP PRN (11:27)
[2020-03-08] MEDS ORDERED: NALOXONE 0.4 MG/ML 1 ML VIAL IV PRN (11:27)
[2020-03-08] MEDS ORDERED: HYDROcodone/APAP 5-325MG 1 EACH TAB PO PRN (11:27)
[2020-03-08] MEDS ORDERED: ONDANSETRON 4 MG/2 ML VIAL IVP PRN (11:27)
[2020-03-08] MEDS ORDERED: BACLOFEN 10 MG TAB PO PRN (11:33)
[2020-03-08] MEDS ORDERED: ALBUTEROL HFA INHALER INHALATION PRN (11:33)
--- NOTE | 2020-03-08 11:41 | P.OP ---
Date of Procedure: 03/08/20 Procedure(s) Performed: PREOPERATIVE DIAGNOSIS: Reducible incisional hernia POSTOPERATIVE DIAGNOSIS: Same PROCEDURE: Incarcerated incisional hernia with mesh SURGEON: Daquan EBL: Minimal ANESTHESIA: Gen. COMPLICATIONS: None OPERATIVE PROCEDURE: Patient placed on the operating table in the supine position. Abdomen was prepped and draped in usual sterile fashion. The previous incision was re-incised superiorly. Dissection through the subcutaneous tissues took place using electrocautery. The patient's main hernia defect was present at the superior aspect of the previous scar site. Diameter of this fascial defect approximately 2 cm. The patient had 3 smaller defects in the fascia inferior to this measuring 1 cm or less each. These were all incorporated into one larger fascial opening. This measured 6 x 4 cm. The Ventrio mesh was chosen. This had size of 12 x 8 cm. This was placed beneath t he fascia after the fascial edges were debrided. The mesh was placed beneath the fascia and sutured to the fascia using trans-fascial 0 Ethibond sutures. Following that the midline fascia was reapproximated using [id number] 0 Ethibond sutures. A drain was placed anterior to the fascial closure exiting through the left lower quadrant. This was sutured to the skin using a 3-0 silk stitch. The subcutaneous tissues were closed using 20 Vicryl sutures. The skin was closed using laura. Sterile dressings were applied. DISPOSITION: Stable to recovery room
[2020-03-08] MEDS: HYDROmorphone 0.5 MG/0.5 ML SYRINGE IVP PRN ×4 (11:47→12:07)
[2020-03-08] MEDS ORDERED: NICOTINE 14MG/24HR PATCH TRANSDERM SCH (13:15)
[2020-03-08] MEDS ORDERED: LORazepam 0.5 MG TAB PO PRN (14:38)
[2020-03-08] MEDS: NYSTATIN 100,000 UNIT/ML SUSP 500,000 UNIT/5 ML CUP PO SCH ×3 (14:47→22:11)
[2020-03-08] MEDS: D5-0.45% NACL WITH KCL 20MEQ/L 1,000 ML IV SCH ×2 (14:47→22:11)
[2020-03-08] MEDS: HYDROmorphone 1 MG/ML 1 ML SYRINGE IVP PRN ×2 (14:48→18:00)
[2020-03-08] MEDS: ALBUTEROL NEBULIZED 2.5 MG/3 ML INHALATION PRN ×2 (15:23→19:51)
[2020-03-08] MEDS: OXcarbazepine 300 MG TAB PO SCH ×2 (15:44→22:11)
[2020-03-08] MEDS: HEPARIN SODIUM,PORCINE 5,000 UNIT/ML 1 ML VIAL SQ SCH (15:44)
--- NOTE | 2020-03-08 17:19 | CONS ---
CONSULTATION DATE OF SERVICE: 03/08/2020 REASON FOR CONSULT: Advice regarding COPD, hypertension, and multiple other medical issues, requested by Dr. Butt. HISTORY OF PRESENT ILLNESS: This 54-year-old woman with a past medical history of COPD, GERD, hypertension, history of DJD, history of diverticulitis, history of bipolar, depression, PTSD, being followed by Dr. Belkis Butt and Dr. Denise Garcia in the outpatient setting, underwent incarcerated incisional hernia with mesh repair by Dr. Butt. The patient is being closely monitored. There is no history of any fever, rigor or chills. No history of headache, loss of consciousness, nausea, vomiting, diarrhea. PAST MEDICAL HISTORY: History of COPD, GERD, hypertension, DJD, history of diverticulitis and bowel resection. HOME MEDICATIONS: Reviewed. They include: 1. Norvasc 10 mg p.o. daily. 2. Detrol LA 4 mg p.o. daily. 3. Sodium 1 tablet p.o. t.i.d. 4. Zoloft 100 mg p.o. b.i.d. 5. Prilosec 20 mg daily. 6. Trileptal 300 mg p.o. t.i.d. 7. Magnesium 500 mg p.o. daily. 8. Zestril 10 mg at bedtime. 9. Synthroid 150 mcg p.o. daily. 10.[place] 5 mg q.i.d. p.r.n. 11.Diflucan 200 mg p.o. daily. 12.Baclofen 1 to 2 tablets p.o. b.i.d. p.r.n. 13.Albuterol p.r.n. 14.Abilify 20 mg p.o. daily. ALLERGIES: IBUPROFEN. FAMILY HISTORY: History of cancer in the family. SOCIAL HISTORY: History of continued smoking. No history of alcohol intake. REVIEW OF SYSTEMS: ENT: No diminished hearing. No diminished vision. CARDIOVASCULAR SYSTEM: As mentioned earlier. RESPIRATORY SYSTEM: As mentioned earlier. GI: No nausea, vomiting. : No dysuria or retention. NERVOUS SYSTEM: No numbness, weakness. ALLERGY/IMMUNOLOGY: No asthma, hayfever. MUSCULOSKELETAL: As mentioned earlier. HEMATOLOGY/ONCOLOGY: No history of anemia. ENDOCRINE: As mentioned earlier. CONSTITUTIONAL: As mentioned earlier. DERMATOLOGY: Negative. RHEUMATOLOGY: Negative. PSYCHIATRY: As mentioned earlier. PHYSICAL EXAMINATION: Patient is alert and oriented x3. Pulse is 101, blood pressure 148/71, respiration 18, temperature 97.9, pulse ox 96% on 2 L. HEENT: Conjunctivae normal. Oral mucosa moist. NECK: No jugular venous distention. No carotid bruit. No lymph node enlargement. CARDIOVASCULAR SYSTEM: S1, S2 muffled. RESPIRATORY SYSTEM: Breath sounds diminished at the bases. No rhonchi. No crackles. ABDOMEN: Soft, status post surgery. LEGS: No edema. No swelling. NERVOUS SYSTEM: Higher functions as mentioned earlier. Moves all 4 limbs. No focal motor or sensory deficit. LYMPHATICS: No lymph node palpable in neck, axillae or groin. SKIN: No ulcer, rash, bleeding. JOINTS: No active deforming arthropathy. LABS: Labs at this time show CBC within normal limits and BMP: Sodium is 136. Cholesterol is 227. ASSESSMENT: 1. Status post repair of incarcerated incisional hernia with mesh. 2. Chronic obstructive pulmonary disease. 3. Gastroesophageal reflux disease. 4. Hypertension. 5. History of myocardial infarction. 6. History of diverticulitis. 7. History of bowel resection. 8. History of hiatal hernia. 9. History of incisional hernia. 10.History of cholecystectomy. 11.History of bipolar, depression, post-traumatic stress disorder. 12.Continuing nicotine dependence. 13.FULL CODE. RECOMMENDATIONS AND DISCUSSION: In this 54-year-old woman who presented after surgery and had multiple medical issues, at this time I recommend resuming the home medications. Monitor blood pressure closely. Incentive spirometry. DVT prophylaxis. I would also recommend smoking cessation and Habitrol patch. Otherwise, the patient may be asked to follow up with her primary physician closely after discharge. Thank you, Dr. Butt, for letting us participate in the care of this patient. MMODL / IJN: [id number] /
[2020-03-08] MEDS: HYDROcodone/APAP 10-325MG 1 EACH TAB PO PRN (20:31)
[2020-03-08] MEDS: SERTRALINE 100 MG TAB PO SCH (20:33)
[2020-03-08] MEDS: DOCUSATE 100 MG CAP PO SCH (20:33)
[2020-03-08] MEDS ORDERED: LISINOPRIL 10 MG TAB PO SCH (21:00)
[2020-03-09] MEDS: HEPARIN SODIUM,PORCINE 5,000 UNIT/ML 1 ML VIAL SQ SCH ×2 (00:14→08:12)
[2020-03-09] MEDS: HYDROcodone/APAP 10-325MG 1 EACH TAB PO PRN ×2 (02:10→08:32)
[2020-03-09 03:39] VITALS: RESP 20; TEMP 98
[2020-03-09] MEDS: HYDROmorphone 1 MG/ML 1 ML SYRINGE IVP PRN (05:37)
[2020-03-09] MEDS ORDERED: LEVOTHYROXINE 75 MCG TAB PO SCH (06:30)
[2020-03-09 07:50] VITALS: BP 120/66
[2020-03-09] MEDS: NYSTATIN 100,000 UNIT/ML SUSP 500,000 UNIT/5 ML CUP PO SCH (08:12)
[2020-03-09] MEDS: OXcarbazepine 300 MG TAB PO SCH (08:15)
[2020-03-09] MEDS: SERTRALINE 100 MG TAB PO SCH (08:15)
[2020-03-09] MEDS: DOCUSATE 100 MG CAP PO SCH (08:16)
[2020-03-09] MEDS: ALBUTEROL NEBULIZED 2.5 MG/3 ML INHALATION PRN (08:38)
[2020-03-09 08:41] VITALS: PULSE 76
[2020-03-09] MEDS ORDERED: OXYBUTYNIN 10 MG TAB.ER.24 PO SCH (09:00)
[2020-03-09] MEDS ORDERED: FLUCONAZOLE 100 MG TAB PO SCH (09:00)
[2020-03-09] MEDS ORDERED: OXYBUTYNIN XL 5 MG TAB.ER.24 PO SCH (09:00)
[2020-03-09] MEDS ORDERED: amLODIPine 10 MG TAB PO SCH (09:00)
[2020-03-09] MEDS ORDERED: PANTOPRAZOLE 40 MG/10 ML VIAL IV SCH (09:00)
[2020-03-09] MEDS ORDERED: MAGNESIUM OXIDE 400 MG TAB PO SCH (09:00)
[2020-03-09] MEDS ORDERED: PANTOPRAZOLE 40 MG TABLET PO SCH (09:00)
[2020-03-09 09:56] LABS: Basophils % (A) 0 %; Eosinophils # (A) 0.1 k/uL (0-0.7); Eosinophils % (A) 2 %; HCT 36.3 % (34.0-46.0); HGB 12.3 gm/dL (11.4-16.0); Lymphocytes # (A) 1.1 k/uL (1.0-4.8); Lymphocytes % (A) 16 %; MCH 29.4 pg (25.0-35.0); MCV 86.4 fL (80.0-100.0); Mean Platelet Volume 7.8; Monocytes # (A) 0.3 k/uL (0-1.0); Monocytes % (A) 4 %; Neutrophils # (A) 5.2 k/uL (1.3-7.7); Neutrophils % (A) 77 %; Platelet Count 196 k/uL (150-450); RDW 12.1 % (11.5-15.5); WBC 6.7 k/uL (3.8-10.6)
[2020-03-09 10:07] LABS: African American GFR (CKD) >90 (>60 ml/min/1.73 sqM); Anion Gap 5 mmol/L; Blood Urea Nitrogen 8 mg/dL (7-17); Calcium 9.3 mg/dL (8.4-10.2); Carbon Dioxide 28 mmol/L (22-30); Chloride 97 mmol/L (98-107); Glucose 119 mg/dL (74-99); Non-African American GFR(CKD) >90 (>60 ml/min/1.73 sqM); Potassium 4.1 mmol/L (3.5-5.1); Sodium 130 mmol/L (137-145)
--- NOTE | 2020-03-09 10:43 | P.DS ---
<Lauren Ma - Last Filed: 03/09/20 10:41> Providers Expected date of discharge: 03/09/20 Hospital Course: 54-year-old female who underwent repair of incarcerated incisional hernia with mesh with Dr. Butt on 03/08/2020. Patient is doing well postoperatively with no immediate complications. She is tolerating diet without nausea or vomiting. Pain is controlled on oral medications. Vital signs are stable. She is stable for discharge home today with CRISTAL drain. Please see EMR for further hospital course details. Discharge diagnosis 1. Repair of incarcerated incisional hernia with mesh Nurse practitioner note has been reviewed by physician. Signing provider agrees with the documented findings, assessment, and plan of care. Patient Condition at Discharge: Stable Plan - Discharge Summary Discharge Rx Participant: Yes New Discharge Prescriptions: Continue Levothyroxine Sodium [Synthroid] 150 mcg PO DAILY #14 OXcarbazepine [Trileptal] 300 mg PO TID amLODIPine [Norvasc] 10 mg PO DAILY Sertraline [Zoloft] 100 mg PO BID Lisinopril [Zestril] 10 mg PO HS Tolterodine ER [Detrol LA] 4 mg PO DAILY ARIPiprazole [Abilify] 20 mg PO DAILY Albuterol Inhaler [Ventolin Hfa Inhaler] 1 puff INHALATION DIRECTED PRN PRN Reason: Shortness Of Breath HYDROcodone/APAP 10-325MG [[place] 10-325] 1 tab PO QID PRN PRN Reason: Pain Baclofen 1 - 2 tab PO BID PRN PRN Reason: leg cramps Magnesium 500 mg PO DAILY No Action Fluconazole [Diflucan] 200 mg PO DAILY Omeprazole [PriLOSEC] 20 mg PO DAILY Sodium 1 tab PO TID Albuterol Nebulizer 1 dose INHALATION DIRECTED PRN PRN Reason: Shortness Of Breath Discharge Medication List Levothyroxine Sodium [Synthroid] 150 mcg PO DAILY #14 05/04/17 [Rx] ARIPiprazole [Abilify] 20 mg PO DAILY 03/04/20 [History] Albuterol Inhaler [Ventolin Hfa Inhaler] 1 puff INHALATION DIRECTED PRN 03/04/20 [History] Albuterol Nebulizer 1 dose INHALATION DIRECTED PRN 03/04/20 [History] Baclofen 1 - 2 tab PO BID PRN 03/04/20 [History] Fluconazole [Diflucan] 200 mg PO DAILY 03/04/20 [History] HYDROcodone/APAP 10-325MG [[place] 10-325] 1 tab PO QID PRN 03/04/20 [History] Lisinopril [Zestril] 10 mg PO HS 03/04/20 [History] Magnesium 500 mg PO DAILY 03/04/20 [History] OXcarbazepine [Trileptal] 300 mg PO TID 03/04/20 [History] Omeprazole [PriLOSEC] 20 mg PO DAILY 03/04/20 [History] Sertraline [Zoloft] 100 mg PO BID 03/04/20 [History] Sodium 1 tab PO TID 03/04/20 [History] Tolterodine ER [Detrol LA] 4 mg PO DAILY 03/04/20 [History] amLODIPine [Norvasc] 10 mg PO DAILY 03/04/20 [History] Follow up Appointment(s)/Referral(s): Patrick Butt MD [Medical Doctor] - 03/11/20 8:30 am Activity/Diet/Wound Care/Special Instructions: regular diet as tolerated. drink fluids. continue to use your incentive spirometery at home. be up moving but nothing strenuous, no lifting over 10lbs. May shower but leave abdominal dressing in place DO NOT REMOVE. Empty CRISTAL drain as instructed see CRISTAL care sheet. Good hand washing before and after CRISTAL care. Call with any concerns regarding increase in output or change in drain output. Call office for any fever, chills, increased pain not covered by pain medicine, increased redness or discolored drainage from incision site. or any concerns. use abdominal binder when up and moving. Good Hand washing. for all in the house. Last received [place] 10 at 0830 Discharge Disposition: HOME SELF-CARE <Patrick Butt - Last Filed: 03/09/20 15:21> Providers Attending physician: Patrick Butt Consults: 03/08/20 11:27 Consult Physician Routine Consulting Provider: Antonio Jaime Consult Reason/Comments: Medical management Do you want consulting provider notified?: Yes Primary care physician: Belkis Butt - Discharge Diagnosis(es) (1) Incisional hernia Status: Acute
[2020-03-09] MEDS: D5-0.45% NACL WITH KCL 20MEQ/L 1,000 ML IV SCH (11:04)
--- NOTE | 2020-03-09 12:24 | P.PN ---
Subjective Progress Note Date: 03/09/20 Principal diagnosis: Is a 54-year-old female who was recently admitted and underwent incarcerated incisional hernia repair with mesh with Dr. Butt and is being closely monitored. Patient is up and getting to the bathroom with no difficulties. Patient continues to have a CRISTAL drain noted and will be discharged with it and will follow-up in the outpatient setting with Dr. Butt next week. Patient does have history of COPD and states that she does have a nebulizer that she uses at home. Home medications have been resumed. Patient states she is going home today. No reports of chest pain, shortness of breath, or palpitations. Patient is afebrile. No reports of nausea vomiting and patient is tolerating diet. Objective - Vital Signs Vital signs: Vital Signs Temp 98 F 03/09/20 07:50 Pulse 76 03/09/20 08:46 Resp 20 03/09/20 08:00 BP 120/66 03/09/20 07:50 Pulse Ox 98 03/09/20 08:38 Intake & Output 03/08/20 03/09/20 03/09/20 18:59 06:59 18:59 Intake Total 2100 1650 Output Total 1415 2865 10 Balance 685 -1215 -10 Weight 71.7 kg Intake: IV 1100 Intake, IV Titration 1000 Amount D5-0.45% NaCl with KCl 1000 20Meq/l 1,000 ml @ 100 mls/hr IV .Q10H [facility] Rx#: [id number] Oral 1000 650 Output: Drainage 20 15 10 Anterior Abdomen 20 15 10 Urine 1375 2850 Estimated Blood Loss 20 Other: Voiding Method Toilet Toilet # Voids 2 1 - Exam Gen: This is a 54-year-old female sitting up in the chair, awake, alert and oriented 3, well-developed, well-nourished. HEENT: Head is atraumatic, normocephalic. Pupils equal, round. Sclerae is anict geraldo. NECK: Supple. No JVD. No lymphadenopathy. No thyromegaly. LUNGS: Diminished breath sounds at the bases No wheezes or rhonchi noted. No intercostal retractions. HEART: Regular rate and rhythm. No murmur. ABDOMEN: Soft. Bowel sounds are present. No masses. Mild tenderness upon palpation. CRISTAL drain noted. EXTREMITIES: No pedal edema. No calf tenderness. NEUROLOGICAL: Patient is awake, alert and oriented x3. Cranial nerves 2 through 12 are grossly intact. - Labs CBC & Chem 7: 03/09/20 09:32 03/09/20 09:32 Labs: Abnormal Lab Results - Last 24 Hours (Table) 03/09/20 Range/Units 09:32 Sodium 130 L (137-145) mmol/L Chloride 97 L (98-107) mmol/L Creatinine 0.45 L (0.52-1.04) mg/dL Glucose 119 H (74-99) mg/dL Assessment and Plan Assessment: Status post repair of incarcerated incisional hernia with mesh COPD, not in any acute exacerbation Gastroesophageal reflux disease Hypertension History of myocardial infarction History of diverticulitis History of bowel resection History of hiatal hernia history of incisional hernia History of cholecystectomy History of bipolar, depression, posttraumatic stress disorder Continuing ongoing nicotine dependence Full code plan: Continue with home medications, instructed patient to continue using incentive spirometer in the outpatient setting at least 10 times every hour while awake. Stress with the patient about refraining from tobacco use. Continue following along with surgery during hospitalization. Further recommendations to follow. Patient states she is being discharged today.
== END 2020-03-09 11:40 | disposition home or self-care (01) ==
LOC: OR 08:12 → 6PED 11:47 → OR 03-09 11:40
PROVIDERS: ATTEND Surgery
DX: K43.0 Incisional hernia with obstruction, without gangrene (principal); K44.9 Diaphragmatic hernia without obstruction or gangrene; J44.9 Chronic obstructive pulmonary disease, unspecified; K21.9 Gastro-esophageal reflux disease without esophagitis; I10 Essential (primary) hypertension; I25.2 Old myocardial infarction; E07.9 Disorder of thyroid, unspecified; K57.90 Diverticulosis of intestine, part unspecified, without perforation or abscess without bleeding; M51.9 Unspecified thoracic, thoracolumbar and lumbosacral intervertebral disc disorder; N32.81 Overactive bladder; F31.9 Bipolar disorder, unspecified; F43.10 Post-traumatic stress disorder, unspecified; F17.210 Nicotine dependence, cigarettes, uncomplicated; M19.90 Unspecified osteoarthritis, unspecified site; Z90.49 Acquired absence of other specified parts of digestive tract; Z98.890 Other specified postprocedural states; Z90.89 Acquired absence of other organs; Z79.890 Hormone replacement therapy; Z79.899 Other long term (current) drug therapy; Z79.891 Long term (current) use of opiate analgesic; Z88.6 Allergy status to analgesic agent; Z80.0 Family history of malignant neoplasm of digestive organs; Z82.49 Family history of ischemic heart disease and other diseases of the circulatory system; Z82.79 Family history of other congenital malformations, deformations and chromosomal abnormalities
CPT/HCPCS: 49561; 49568; 94640 ×3; 94760; 64488; 86900; 86901; 80048; 85025; 86850; 36415; C1781; S4990; J2250; J1644 ×2; J1100 ×2; J2710; J0690; J2405; J2001; J3010; J1170 ×3; J2795; J0330; J2704

== ENCOUNTER 2020-03-30 18:17 | Emergency (ER) | payer BC, MEDICARE ==
[2020-03-30 18:40] VITALS: RESP 18
[2020-03-30] MEDS ORDERED: ONDANSETRON 4 MG/2 ML VIAL IVP STA (18:55)
[2020-03-30] MEDS ORDERED: SODIUM CHLORIDE 0.9% 1,000 ML IV STA (18:55)
[2020-03-30] MEDS ORDERED: MORPHINE SULFATE 4 MG/ML SYRINGE IV STA (18:55)
[2020-03-30 19:35] LABS: Appearance,Urine Clear (Clear); Bilirubin,Urine Negative (Negative); Blood,Urine Negative (Negative); Color,Urine Light Yellow; Glucose,Urine (UA) Negative (Negative); Ketones,Urine Negative (Negative); Leukocyte Esterase,Urine Negative (Negative); Nitrite,Urine Negative (Negative); Protein,Urine Negative (Negative); Specific Gravity,Urine 1.011 (1.001-1.035); Urobilinogen,Urine <2.0 mg/dL (<2.0)
[2020-03-30 19:41] LABS: Basophils # (A) 0.1 k/uL (0-0.2); Basophils % (A) 1 %; Eosinophils # (A) 0.6 k/uL (0-0.7); Eosinophils % (A) 10 %; HCT 37.6 % (34.0-46.0); HGB 12.4 gm/dL (11.4-16.0); Lymphocytes # (A) 2.1 k/uL (1.0-4.8); Lymphocytes % (A) 37 %; MCHC 32.9 g/dL (31.0-37.0); Mean Platelet Volume 7.4; Monocytes # (A) 0.3 k/uL (0-1.0); Monocytes % (A) 6 %; Neutrophils # (A) 2.5 k/uL (1.3-7.7); Neutrophils % (A) 45 %; Platelet Count 224 k/uL (150-450); RBC 4.42 m/uL (3.80-5.40); RDW 12.3 % (11.5-15.5); WBC 5.6 k/uL (3.8-10.6)
[2020-03-30 19:45] LABS: ALT 9 U/L (4-34); AST 17 U/L (14-36); African American GFR (CKD) >90 (>60 ml/min/1.73 sqM); Albumin 4.4 g/dL (3.5-5.0); Alkaline Phosphatase 64 U/L (38-126); Amylase <30 U/L (30-110); Anion Gap 10 mmol/L; Blood Urea Nitrogen 6 mg/dL (7-17); Calcium 9.4 mg/dL (8.4-10.2); Carbon Dioxide 23 mmol/L (22-30); Chloride 96 mmol/L (98-107); Glucose 88 mg/dL (74-99); Non-African American GFR(CKD) >90 (>60 ml/min/1.73 sqM); Potassium 3.8 mmol/L (3.5-5.1); Sodium 129 mmol/L (137-145); Total Bilirubin 0.1 mg/dL (0.2-1.3); Total Protein 7.1 g/dL (6.3-8.2)
--- NOTE | 2020-03-30 19:53 | CT ---
EXAMINATION TYPE: CT abdomen pelvis w con DATE OF EXAM: 03/30/2020 COMPARISON: 02/06/2020 HISTORY: abdominal pain post-op hernia repair CT DLP: 922.8 mGycm Automated exposure control for dose reduction was used. CONTRAST: Performed with IV Contrast, patient injected with 100 mL of Isovue 300. Lung bases are clear. There is no pleural effusion. There is small hiatal hernia. Heart size is ángela l. There is no pericardial effusion. Stomach is intact. Spleen liver pancreas appear normal. There is mild dilation of the biliary tree and the common bile duct measures 1.3 cm. There are clips from cho lecystectomy. I see no obstructing lesion at the distal common bile duct. There is no adrenal mass. Kidneys show satisfactory contrast opacification. There is no hydronephrosi s. Ureters are not dilated. There is no retroperitoneal adenopathy. Bladder distends smoothly. There is no inguinal hernia. There is no free fluid in the pelvis. There is previous surgery of the rectosi gmoid colon. There is no evidence of thickened appendix. Appendix appears posterior and appears ángela l. There is no mesenteric edema. There is no ascites or free air. There is no bowel obstruction. There i s thickening of the anterior abdominal wall with edema. There is subcutaneous edema adjacent to the a nterior abdominal wall. This is consistent with abdominal wall hernia surgery. Lumbar vertebra have normal alignment. There is disc space narrowing at L3-4 and L4-5. There is no co mpression fracture. Bony pelvis appears intact. The hip joints appear intact. IMPRESSION: Anterior abdominal wall surgery with subcutaneous edema appears new compared to old exam. There is so me mild sigmoid diverticulosis without diverticulitis. Previous sigmoid colon surgery. There is some dilation of the biliary tree. No obstructing lesion seen. This appears similar to old e xam.
[2020-03-30 21:02] VITALS: BP 159/85; PULSE 73; TEMP 98.1
--- NOTE | 2020-03-30 21:03 | ED ---
General Adult HPI - General Source: patient, RN notes reviewed Mode of arrival: ambulatory Limitations: no limitations <Jose Junior - Last Filed: 03/30/20 21:10> <Promise Rod - Last Filed: 04/04/20 02:16> - General Chief complaint: Abdominal Pain Stated complaint: post surgical pain Time Seen by Provider: 03/30/20 18:44 - History of Present Illness Initial comments: 54-year-old female presents to the emergency department for a chief complaint of abdominal pain. Patient had a an open incisional hernia repair with mesh about [address] hill. Patient reports that she has had some mild left upper quadrant pain over the past couple weeks however today this worsen significantly. Patient called her doctor as well as Dr. sales and was directed to come to the emergency room. Patient states movement makes this pain worse. She denies nausea vomiting. States bowel movements are normal for her. Patient denies fevers or chills.Patient has no other complaints at this time including shortness of breath, chest pain, nausea or vomiting, headache, or visual changes. (Jose Junior) - Related Data Home Medications Medication Instructions Recorded Confirmed ARIPiprazole [Abilify] 20 mg PO DAILY 03/04/20 03/08/20 Albuterol Inhaler [Ventolin Hfa 1 puff INHALATION DIRECTED PRN 03/04/20 03/08/20 Inhaler] Albuterol Nebulizer 1 dose INHALATION DIRECTED PRN 03/04/20 03/08/20 Baclofen 1 - 2 tab PO BID PRN 03/04/20 03/08/20 Fluconazole [Diflucan] 200 mg PO DAILY 03/04/20 03/08/20 HYDROcodone/APAP 10-325MG [[place] 1 tab PO QID PRN 03/04/20 03/08/20 10-325] Lisinopril [Zestril] 10 mg PO HS 03/04/20 03/08/20 Magnesium 500 mg PO DAILY 03/04/20 03/08/20 OXcarbazepine [Trileptal] 300 mg PO TID 03/04/20 03/08/20 Omeprazole [PriLOSEC] 20 mg PO DAILY 03/04/20 03/08/20 Sertraline [Zoloft] 100 mg PO BID 03/04/20 03/08/20 Sodium 1 tab PO TID 03/04/20 03/08/20 Tolterodine ER [Detrol LA] 4 mg PO DAILY 03/04/20 03/08/20 amLODIPine [Norvasc] 10 mg PO DAILY 03/04/20 03/08/20 Previous Rx's Medication Instructions Recorded Levothyroxine Sodium [Synthroid] 150 mcg PO DAILY #14 05/04/17 Ketorolac [Toradol] 10 mg PO TID 3 Days #9 tab 03/30/20 Allergies Allergy/AdvReac Type Severity Reaction Status Date / Time ibuprofen [From Motrin] Allergy Hallucinati Verified 03/30/20 18:40 ons Review of Systems ROS Other: All systems not noted in ROS Statement are negative. <Jose Junior P - Last Filed: 03/30/20 21:10> ROS Other: All systems not noted in ROS Statement are negative. <Promise Rod - Last Filed: 04/04/20 02:16> ROS Statement: Those systems with pertinent positive or pertinent negative responses have been documented in the HPI. Past Medical History Past Medical History: No Reported History Additional Past Medical History / Comment(s): diverticulitis, hx bowel resection, DDD with buldging disc & back pain., [place]AB, ?[place] , Hiatal Hernia., incisional hernia Last Myocardial Infarction Date:: UNKNOWN History of Any Multi-Drug Resistant Organisms: None Reported Past Surgical History: Section, Hernia Repair, Orthopedic Surgery Additional Past Surgical History / Comment(s): hernia repair x 4 with mesh Past Anesthesia/Blood Transfusion Reactions: No Reported Reaction Past Psychological History: Bipolar Smoking Status: Current every day smoker Past Alcohol Use History: None Reported, Rare Past Drug Use History: None Reported - Past Family History Father Family Medical History: Cancer Additional Family Medical History / Comment(s): Father in his 70s from colon cancer. Mother Family Medical History: Coronary Artery Disease (CAD) Additional Family Medical History / Comment(s): Mother in her 70s from heart disease. Brother(s) Additional Family Medical History / Comment(s): Patient states that she has 11 siblings was does not know any medical history. She has 3 children that are healthy although one has Miri syndrome. <Jose Junior P - Last Filed: 03/30/20 21:10> General Exam Limitations: no limitations General appearance: alert, in no apparent distress Head exam: Present: atraumatic, normocephalic, normal inspection Eye exam: Present: normal appearance, PERRL, EOMI. Absent: scleral icterus, conjunctival injection, periorbital swelling ENT exam: Present: normal exam, mucous membranes moist Neck exam: Present: normal inspection, full ROM. Absent: tenderness, meningismus, lymphadenopathy Respiratory exam: Present: normal lung sounds bilaterally. Absent: respiratory distress, wheezes, rales, rhonchi, stridor Cardiovascular Exam: Present: regular rate, normal rhythm, normal heart sounds. Absent: bradycardia, tachycardia, irregular rhythm GI/Abdominal exam: Present: soft, tenderness (Left upper quadrant tenderness. No lower abdominal tenderness or right upper quadrant tenderness.), normal bowel sounds. Absent: distended, guarding, rebound, rigid <Jose Junior P - Last Filed: 03/30/20 21:10> Course Vital Signs 03/30/20 03/30/20 18:37 21:00 Temperature 98.2 F 98.1 F Pulse Rate 83 73 Respiratory 18 18 Rate Blood Pressure 175/95 159/85 O2 Sat by Pulse 100 99 Oximetry Medical Decision Making - Lab Data Result diagrams: 03/30/20 19:18 03/30/20 19:18 <Jose Junior P - Last Filed: 03/30/20 21:10> - Lab Data Result diagrams: 03/30/20 19:18 03/30/20 19:18 <Promise Rod - Last Filed: 04/04/20 02:16> - Medical Decision Making Vitals are stable. CBC is unremarkable. CMP does show some evidence of hyponatremia, patient was given a liter of normal saline. Amylase and lipase are within normal limits. Urinalysis is negative. CT abdomen and pelvis with contrast shows anterior abdominal wall surgery with subcutaneous edema. Mild sigmoid diverticulosis without diverticulitis. There is some dilation of the biliary tree without obstructing lesion seen. At this time I discussed findings with patient and she told me that Dr. hill would like to be called although she is requesting discharge home would like to see him in an outpatient setting. Therefore we did speak with him and he reviewed the CAT scan. States it appears okay to him. Recommend sending home with Toradol as she does have a pain contract. Patient will return here for any worsening symptoms and will otherwise see Dr. Hill in the office. (Jose Junior) I was available for consultation in the emergency department. The history and physical exam were done by the midlevel provider. I was consulted for this patie nts care. I reviewed the case with the midlevel provider and based on their presentation of the patient, I agree with the assessment, medical decision making and plan of care as documented. Chart was dictated using [employer] dictation software. Attempts were made to correct any dictation errors however some typographical errors may persist. Patient was seen during a national state of emergency due to the Covid-19 pandemic. (Promise Rod) - Lab Data Lab Results 03/30/20 03/30/20 03/30/20 Range/Units 19:18 19:18 19:18 WBC 5.6 (3.8-10.6) k/uL RBC 4.42 (3.80-5.40) m/uL Hgb 12.4 (11.4-16.0) gm/dL Hct 37.6 (34.0-46.0) % MCV 85.0 (80.0-100.0) fL MCH 28.0 (25.0-35.0) pg MCHC 32.9 (31.0-37.0) g/dL RDW 12.3 (11.5-15.5) % Plt Count 224 (150-450) k/uL Neutrophils % 45 % Lymphocytes % 37 % Monocytes % 6 % Eosinophils % 10 % Basophils % 1 % Neutrophils # 2.5 (1.3-7.7) k/uL Lymphocytes # 2.1 (1.0-4.8) k/uL Monocytes # 0.3 (0-1.0) k/uL Eosinophils # 0.6 (0-0.7) k/uL Basophils # 0.1 (0-0.2) k/uL Sodium 129 L (137-145) mmol/L Potassium 3.8 (3.5-5.1) mmol/L Chloride 96 L (98-107) mmol/L Carbon Dioxide 23 (22-30) mmol/L Anion Gap 10 mmol/L BUN 6 L (7-17) mg/dL Creatinine 0.47 L (0.52-1.04) mg/dL Est GFR (CKD-EPI)AfAm >90 (>60 ml/min/1.73 sqM) Est GFR (CKD-EPI)NonAf >90 (>60 ml/min/1.73 sqM) Glucose 88 (74-99) mg/dL Calcium 9.4 (8.4-10.2) mg/dL Total Bilirubin 0.1 L (0.2-1.3) mg/dL AST 17 (14-36) U/L ALT 9 (4-34) U/L Alkaline Phosphatase 64 (38-126) U/L Total Protein 7.1 (6.3-8.2) g/dL Albumin 4.4 (3.5-5.0) g/dL Amylase <30 L (30-110) U/L Lipase 46 (23-300) U/L Urine Color Light Yellow Urine Appearance Clear (Clear) Urine pH 6.0 (5.0-8.0) Ur Specific [place] 1.011 (1.001-1.035) Urine Protein Negative (Negative) Urine Glucose (UA) Negative (Negative) Urine Ketones Negative (Negative) Urine Blood Negative (Negative) Urine Nitrite Negative (Negative) Urine Bilirubin Negative (Negative) Urine Urobilinogen <2.0 (<2.0) mg/dL Ur Leukocyte Esterase Negative (Negative) Disposition Is patient prescribed a controlled substance at d/c from ED?: No Time of Disposition: 21:12 <Jose Junior P - Last Filed: 03/30/20 21:10> <Promise Rod - Last Filed: 04/04/20 02:16> Clinical Impression: Abdominal pain Disposition: HOME SELF-CARE Condition: Good Instructions (If sedation given, give patient instructions): Abdominal Pain (ED) Additional Instructions: Please continue your at home pain medications as directed. You can take Toradol as well for pain. Please follow-up with your surgeon by calling for an appointment. Return to the emergency room for any worsening symptoms. Prescriptions: Ketorolac [Toradol] 10 mg PO TID 3 Days #9 tab Referrals: Belkis Hill MD [Primary Care Provider] - 1-2 days Patrick Hill MD [Medical Doctor] - 1-2 days
== END 2020-03-30 21:28 | disposition home or self-care (01) ==
LOC: EC 18:17
DX: R10.12 Left upper quadrant pain (principal); F31.9 Bipolar disorder, unspecified; K57.30 Diverticulosis of large intestine without perforation or abscess without bleeding; F17.200 Nicotine dependence, unspecified, uncomplicated; Z79.899 Other long term (current) drug therapy; Z88.6 Allergy status to analgesic agent
CPT/HCPCS: 36415; 80053; 82150; 83690; 85025; 81003; 87040; 74177; 99284; 96374; 96375; 96361 ×2; J2270; J2405; Q9967

== ENCOUNTER → 2020-05-21 | Outpatient (CLI) | payer BC, MEDICARE ==
--- NOTE | 2020-05-23 17:57 | CT ---
EXAMINATION TYPE: CT abdomen pelvis w con DATE OF EXAM: 05/21/2020 COMPARISON: CT abdomen pelvis 03/30/2020 HISTORY: Abdominal pain and bilateral inguinal pain post hernia sx x2 months ago. CT DLP: 1053 mGycm Automated exposure control for dose reduction was used. TECHNIQUE: Helical acquisition of images was performed from the lung bases through the pelvis. CONTRAST: Performed with Oral Contrast and with IV Contrast, patient injected with 100ml mL of Isovue 300. FINDINGS: LUNG BASES: Normal. LIVER: Normal. BILIARY SYSTEM: Status post cholecystectomy. Mild intrahepatic and extrahepatic biliary ductal dilata tion redemonstrated, with common bile duct measuring up to 12 mm. PANCREAS: Normal. SPLEEN: Normal. ADRENALS: Normal. KIDNEYS: Normal. BOWEL: Small hiatal hernia. Rectal anastomosis appears intact. Mild colonic diverticulosis. No acute diverticulitis. No pericecal inflammation. PERITONEUM: No free air is visualized. No free fluid. Interval healing of mid line ventral hernia re pair changes. No inguinal hernias. ADENOPATHY: No lymphadenopathy. PELVIS: Normal urinary bladder. Status post hysterectomy. VASCULATURE: No abdominal aortic aneurysm. MUSCULOSKELETAL: Mild inflammatory stranding at the ventral abdominal hernia repair surgical site wi th no evidence of focal fluid collection. Degenerative changes of the spine. IMPRESSION: 1. Intrahepatic and extrahepatic biliary ductal dilatation is increased verses 02/06/2020 CT compariso n. Follow-up with MRCP is recommended. 2. Decreased inflammatory stranding at the ventral abdominal wall hernia repair surgical site versus 03/30/20 comparison. No evidence of acute process or focal fluid collections. No abdominal wall or in guinal hernia.
== END | disposition home or self-care (01) ==
LOC: RADCTMAIN 13:54
PROVIDERS: ATTEND Surgery
DX: K83.8 Other specified diseases of biliary tract (principal)
CPT/HCPCS: 74177; Q9967

== ENCOUNTER 2022-08-14 17:34 | Emergency (ER) | payer MEDICARE ==
[2022-08-14 18:16] VITALS: BP 176/98; PULSE 100; RESP 20; TEMP 98
--- NOTE | 2022-08-14 20:38 | ED ---
Skin/Abscess/FB HPI - General Chief complaint: Skin/Abscess/Foreign Body Stated complaint: poss parasites Time Seen by Provider: 08/14/22 18:58 Source: patient, RN notes reviewed Mode of arrival: ambulatory Limitations: no limitations - History of Present Illness Initial comments: This is a 56-year-old female who presents to the emergency department with concerns of parasites. States that for the last several days, she has noticed sores all over her body and small dorsey colored items that look like they are coming out of her eyes. She does have multiple pictures on her phone of these items. Also states that there are long black looking creatures in her bathtub. She pulled up the mat to clean it out when she saw these. She is not sure if this may be hair, but states that nobody in her house has hair like this. She did not notice them moving, but states that she sprayed them with cleansing solution first. Also complains of severe lower abdominal pain and sores all of her body that she would describe as painful as opposed to itchy. Denies any rectal pain, however her special needs son, who is with her, has been complaining of rectal pain. Denies any fevers, chills, sore throat, cough, dyspnea, chest pain, palpitations, nausea, vomiting, diarrhea, back pain, or headaches. MD complaint: insect bite/sting Onset/Timin -: days(s) Location: generalized - Related Data Home Medications Medication Instructions Recorded Confirmed ARIPiprazole [Abilify] 20 mg PO DAILY 03/04/20 03/08/20 Albuterol Inhaler [Ventolin Hfa 1 puff INHALATION DIRECTED PRN 03/04/20 03/08/20 Inhaler] Albuterol Nebulizer 1 dose INHALATION DIRECTED PRN 03/04/20 03/08/20 Baclofen 1 - 2 tab PO BID PRN 03/04/20 03/08/20 Fluconazole [Diflucan] 200 mg PO DAILY 03/04/20 03/08/20 HYDROcodone/APAP 10-325MG [Hurst 1 tab PO QID PRN 03/04/20 03/08/20 10-325] Magnesium 500 mg PO DAILY 03/04/20 03/08/20 OXcarbazepine [Trileptal] 300 mg PO TID 03/04/20 03/08/20 Omeprazole [PriLOSEC] 20 mg PO DAILY 03/04/20 03/08/20 Sertraline [Zoloft] 100 mg PO BID 03/04/20 03/08/20 Sodium 1 tab PO TID 03/04/20 03/08/20 Tolterodine ER [Detrol LA] 4 mg PO DAILY 03/04/20 03/08/20 amLODIPine [Norvasc] 10 mg PO DAILY 03/04/20 03/08/20 lisinopriL [Zestril] 10 mg PO HS 03/04/20 03/08/20 Previous Rx's Medication Instructions Recorded Levothyroxine Sodium [Synthroid] 150 mcg PO DAILY #14 05/04/17 Ketorolac [Toradol] 10 mg PO TID 3 Days #9 tab 03/30/20 Albendazole [Albenza] 400 mg PO DIRECTED #4 tablet 08/14/22 Allergies Allergy/AdvReac Type Severity Reaction Status Date / Time ibuprofen [From Motrin] Allergy Hallucinati Verified 03/30/20 18:40 ons Review of Systems ROS Statement: Those systems with pertinent positive or pertinent negative responses have been documented in the HPI. ROS Other: All systems not noted in ROS Statement are negative. Past Medical History Past Medical History: No Reported History Additional Past Medical History / Comment(s): diverticulitis, hx bowel resection, DDD with buldging disc & back pain., OAB, ?SC , Hiatal Hernia., incisional hernia Last Myocardial Infarction Date:: UNKNOWN History of Any Multi-Drug Resistant Organisms: None Reported Past Surgical History: Section, Hernia Repair, Orthopedic Surgery Additional Past Surgical History / Comment(s): hernia repair x 4 with mesh Past Anesthesia/Blood Transfusion Reactions: No Reported Reaction Past Psychological History: Bipolar Past Alcohol Use History: None Reported, Rare Past Drug Use History: None Reported - Past Family History Father Family Medical History: Cancer Additional Family Medical History / Comment(s): Father in his 70s from colon cancer. Mother Family Medical History: Coronary Artery Disease (CAD) Additional Family Medical History / Comment(s): Mother in her 70s from heart disease. Brother(s) Additional Family Medical History / Comment(s): Patient states that she has 11 siblings was does not know any medical history. She has 3 children that are healthy although one has [place] syndrome. General Exam Limitations: no limitations General appearance: alert, anxious Head exam: Present: atraumatic, normocephalic, normal inspection Eye exam: Present: normal appearance, PERRL, EOMI. Absent: scleral icterus, conjunctival injection, periorbital swelling ENT exam: Present: normal exam, mucous membranes moist, TM's normal bilaterally, normal external ear exam Respiratory exam: Present: normal lung sounds bilaterally. Absent: respiratory distress, wheezes, rales, rhonchi, stridor Cardiovascular Exam: Present: regular rate, normal rhythm, normal heart sounds. Absent: systolic murmur, diastolic murmur, rubs, gallop, clicks GI/Abdominal exam: Present: soft, normal bowel sounds. Absent: distended, tenderness, guarding, rebound, rigid Neurological exam: Present: alert, oriented X3, CN II-XII intact Psychiatric exam: Present: normal affect, normal mood Skin exam: Present: warm, dry, other (Multiple sores on the patient's trunk and arms bilaterally) Course Vital Signs 08/14/22 18:11 Temperature 98 F Pulse Rate 100 Respiratory 20 Rate Blood Pressure 176/98 O2 Sat by Pulse 98 Oximetry Medical Decision Making - Medical Decision Making This is a 56-year-old female who presents to the emergency department with concerns of a parasitic infection. I did review multiple photos on the patient's phone, and there was no consistent appearance to any of these findings to give a straightforward explanation for her symptoms. Ultrasound of the abdomen obtained, this did not identify any acute irregularities. Advised that we can treat her with an antiparasitic medication to see if that resolves the problem. We did also discuss possibility of bedbugs due to the sores on her body. Prescription for Albenza provided. She will take 400 mg once and then repeat the dose in 2 weeks. Advised that the best way to get a definitive diagnosis would be to take a stool sample to her primary care provider's office. Also advised to wash all of her clothes and sheets in hot water. Return precautions reviewed in depth, the patient is instructed to return to the emergency department with any new, worsening, or concerning symptoms. Patient verbalized understanding. This case was discussed in detail with the attending ED physician. Presentation, findings, and treatment plan discussed in detail as well. - Radiology Data Radiology results: report reviewed, image reviewed Disposition Clinical Impression: Abnormal findings in stool Disposition: HOME SELF-CARE Instructions (If sedation given, give patient instructions): Albendazole (By mouth) Additional Instructions: Return to the emergency department with any new, worsening, or concerning symptoms. The albendazole as 2 tablets at once. Then repeat the dose in 2 weeks. Follow up with your primary care provider in 1-2 days. Prescriptions: Albendazole [Albenza] 400 mg PO DIRECTED #4 tablet Is patient prescribed a controlled substance at d/c from ED?: No Referrals: None,Stated [Primary Care Provider] - 1-2 days
--- NOTE | 2022-08-14 21:01 | US ---
EXAMINATION TYPE: US abdomen limited DATE OF EXAM: 08/14/2022 COMPARISON: NONE CLINICAL HISTORY: Abdominal pain, concerned about parasites. Abdominal pain. Patient concerned for pa rasites TECHNIQUE: Multiple sonographic images of the right upper quadrant are obtained. FINDINGS: EXAM MEASUREMENTS: Liver Length: 16.1 cm Gallbladder Wall: Surgically absent CBD: 0.9 cm Right Kidney: 10.3 x 5.4 x 5.1 cm CERTIFIED [employer] NOTES: Pancreas: Parts visualized appear wnl Liver: wnl Gallbladder: Surgically absent Evidence for sonographic Alicea's sign: No CBD: wnl Right Kidney: wnl IMPRESSION: There is cholecystectomy. No dilated ducts. No focal liver defect.
== END 2022-08-14 21:41 | disposition home or self-care (01) ==
LOC: EC 17:34
DX: R19.5 Other fecal abnormalities (principal); F31.9 Bipolar disorder, unspecified; Z88.6 Allergy status to analgesic agent
CPT/HCPCS: 76705; 99283